=== PATIENT | female | born 1960 | race Caucasian/White ===

== ENCOUNTER → 2018-07-15 | Emergency (ER) | payer SELFPAY ==
[~2018-07-15] VITALS: Ht 157.5 cm; Wt 49.9 kg
[~2018-07-15] MED LIST: ACET-2267 PO; ACHD5005 PO; ALBU8.5H4 IH; ALPR0.5T PO; ASPI325T32 PO; B/P MEDICATION; CALCIUM; CATHETER FLUSH 10 ML SYR IV PRN; CEPH500C PO; CODE118S2 PO; ESTR-2 PO; GUAI-150 PO; IOHEXOL 350 MG/ML 100 ML (OMNIPAQUE 350) VIAL IV ONE; LIDOCAINE 1% INJ 20 ML 20 ML VIAL INJ ONE; MIDAZOLAM 2 MG/2 ML (VERSED) VIAL IVP ONE; MULT1TAB63; NF-ESTR1.5 PO; NS 250 ML (IVPB) BAG IV ONE; NS IV 1000 ML 1,000 ML IV STA; NS IV 1000 ML 1,000 ML ONE; NS IV 500 ML 500 ML IV ONE; ONDA4TAB11 PO; ONDANSETRON 4 MG/2 ML (SDV) Z0FRAN ONE; PARO10TA3 PO; PRX10T PO; RNT150T PO; fentaNYL INJECTION 100 MCG/2 ML AMP IVP ONE; fentaNYL INJECTION 100 MCG/2 ML AMP ONE
[2018-07-15 10:04] LABS: BASOPHILS % (AUTO) 0 % (0-10); EOSINOPHILS # (AUTO) 0.1 10^3/uL (0.0-0.3); EOSINOPHILS % (AUTO) 0 % (0-10); HEMATOCRIT 42 % (35-52); HEMOGLOBIN 14.1 G/DL (11.5-16.0); LYMPHOCYTES # (AUTO) 1.3 X 10^3 (1.0-4.0); LYMPHOCYTES % (AUTO) 10 % (12-44); MEAN CORPUSCULAR HEMOGLOBIN 31 PG (25-34); MEAN CORPUSCULAR HGB CONC 33 G/DL (32-36); MEAN CORPUSCULAR VOLUME 93 FL (80-99); MONOCYTES % (AUTO) 8 % (0-12); NEUTROPHILS % (AUTO) 82 % (42-75); PLATELET COUNT 584 10^3/uL (130-400); RED BLOOD COUNT 4.54 10^6/uL (4.35-5.85); RED CELL DISTRIBUTION WIDTH 12.6 % (10.0-14.5); WHITE BLOOD COUNT 13.4 10^3/uL (4.3-11.0)
[2018-07-15 10:25] LABS: ALANINE AMINOTRANSFERASE 17 U/L (0-55); ALBUMIN 4.2 GM/DL (3.2-4.5); ALKALINE PHOSPHATASE 122 U/L (40-136); BILIRUBIN,TOTAL 0.4 MG/DL (0.1-1.0); BUN/CREATININE RATIO 12; CALCIUM 10.2 MG/DL (8.5-10.1); CARBON DIOXIDE 24 MMOL/L (21-32); CHLORIDE 96 MMOL/L (98-107); CREATININE SERUM 0.74 MG/DL (0.60-1.30); GFR ESTIMATED > 60; GLUCOSE 90 MG/DL (70-105); POTASSIUM 4.7 MMOL/L (3.6-5.0); SODIUM 132 MMOL/L (135-145); TOTAL PROTEIN 8.2 GM/DL (6.4-8.2)
--- NOTE | 2018-07-15 10:29 | ED Abdominal Pain ---
General Chief Complaint: Abdominal/GI Problems Stated Complaint: CHEST PAIN Nursing Triage Note: PT CO OF ABD PAIN R UPPER ABD, PT VERY ANXIOUS AT THIS X. STATES HAS BEEN HAVING VOMITING W PAIN FOR 3-4 WEEKS WHEN EATS. PT SENT FROM [facility] Sepsis Screen: No Definite Risk Source of Information: Patient Exam Limitations: No Limitations (TRUMAN WALKER MD) History of Present Illness Timing/Duration: Other Severity/Quality: Moderate Location: RUQ, Generalized Abdomen (TRUMAN WALKER MD) Date Seen by Provider: Jul 15, 2018 Time Seen by Provider: 10:40 Initial Comments Here with right sided abdominal pain that is under the ribs anterior and posterior as well as pain that goes up to her shoulder blade on the right. Has some right upper quadrant abdominal pain. Patient does have long-term smoking history and smokes approximately a pack and a half a day for a long time but is down to less than half a pack a day now. Denies nausea and vomiting. Does report chills. Overall doesn't feel well. Timing/Duration: 1 Week, Other Modifying Factors: Worsens With Lying down, Worsens With Movement Associated Symptoms: Back Pain, Chest Pain, Fever/Chills; No Nausea/Vomiting; Shortness of Air (SHUKRI KIRK MD) Allergies and Home Medications Allergies Coded Allergies: NSAIDS (Non-Steroidal Anti-Inflamma (Verified Allergy, Unknown, 01/09/08) Home Medications Acetaminophen 500 Mg Tablet, 500-1,000 MG PO Q6H PRN for PAIN, (Reported) Alprazolam 0.5 Mg Tablet, 0.5 MG PO Q8H PRN for ANXIETY Prescribed by: SHUKRI KIRK on 07/15/18 1444 Aspirin 325 Mg Tablet.dr, 325 MG PO DAILY Prescribed by: FAY RODRÍGUEZ on 10/09/16 1609 Estropipate 1.5 Mg Tab, 1.5 MG PO DAILY, (Reported) Hydrocodone Bit/Acetaminophen 1 Tab Tab, 1 EACH PO Q4H PRN for PAIN-MODERATE Prescribed by: SHUKRI KIRK on 07/15/18 1442 Ondansetron 4 Mg Tab.rapdis, 4 MG PO Q6H PRN for NAUSEA/VOMITING Prescribed by: SHUKRI KIRK on 07/15/18 1442 Patient Home Medication List Home Medication List Reviewed: Yes (SHUKRI KIRK MD) Review of Systems Review of Systems Constitutional: see HPI EENTM: No Symptoms Reported Respiratory: Cough Cardiovascular: No Symptoms Reported Gastrointestinal: See HPI Genitourinary: No Symptoms Reported Musculoskeletal: no symptoms reported Skin: no symptoms reported Psychiatric/Neurological: No Symptoms Reported Endocrine: No Symptoms Reported Hematologic/Lymphatic: No Symptoms Reported (TRUMAN WALKER MD) Respiratory: Cough, Shortness of Air Cardiovascular: See HPI; Denies Edema, Denies Palpitations Musculoskeletal: back pain, muscle pain (SHUKRI KIRK MD) All Other Systems Reviewed Negative Unless Noted: Yes (SHUKRI KIRK MD) Past Bwkhrqh-Zravsg-Vqlsuu Hx Past Med/Social Hx: Reviewed Nursing Past Med/Soc Hx (SHUKRI KIRK MD) Patient Social History Alcohol Use: Denies Use Number of Drinks Today: FF Alcohol Beverage of Choice: Vodka Recreational Drug Use: No Smoking Status: Current Everyday Smoker Type Used: Cigarettes Recent Foreign Travel: No Contact w/Someone Who Travel: No Recent Infectious Disease Expo: No Recent Hopitalizations: Yes ( HYSTERECTOMY 2000, OVARY REMOVED AT AGE 11, APPENDECTOMY, TONSELECTOMY) Physical Abuse: No Sexual Abuse: No (TRUMAN WALKER MD) Seasonal Allergies Seasonal Allergies: Yes (TRUMAN WALKER MD) Past Medical History Surgeries: Yes (HYSTERECTOMY, APPENDECTOMY, TONSELECTOMY) Respiratory: Yes (BRONCHITIS) Currently Using CPAP: No Cardiac: No Neurological: No Gastrointestinal: Yes (ULCER AT ONE TIME) Hiatal Hernia Musculoskeletal: No Endocrine: No Cancer: No Psychosocial: No Integumentary: No Blood Disorders: No (TRUMAN WALKER MD) Surgeries: Yes (right oophorectomy with salpingectomy) Appendectomy Respiratory: Yes Chronic Bronchitis (SHUKRI KIRK MD) Family Medical History Reviewed Nursing Family Hx (SHUKRI KIRK MD) No Pertinent Family Hx (SHUKRI KIRK MD) Physical Exam Vital Signs Vital Signs - First Documented 07/15/18 09:40 Temp 97.3 Pulse 122 Resp 29 B/P (MAP) 161/97 (118) Pulse Ox 94 O2 Delivery Room Air (SHUKRI KIRK MD) Vital Signs Capillary Refill : Less Than 3 Seconds (TRUMAN WALKER MD) Height/Weight/BMI Height: 5'2.00" Weight: 110lbs. 6.0oz. 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 (TRUMAN WALKER MD) General Appearance: WD/WN, moderate distress HEENT: PERRL/EOMI, normal ENT inspection Neck: full range of motion, supple Respiratory: normal breath sounds Cardiovascular: no murmur Gastrointestinal: soft; No no pulsatile mass Back: no CVA tenderness, no vertebral tenderness (SHUKRI KIRK MD) Progress/Results/Core Measures Results/Orders Lab Results Laboratory Tests Test 07/15/18 09:50 Range/Units White Blood Count 13.4 H 4.3-11.0 10^3/uL Red Blood Count 4.54 4.35-5.85 10^6/uL Hemoglobin 14.1 11.5-16.0 G/DL Hematocrit 42 35-52 % Mean Corpuscular Volume 93 80-99 FL Mean Corpuscular Hemoglobin 31 25-34 PG Mean Corpuscular Hemoglobin Concent 33 32-36 G/DL Red Cell Distribution Width 12.6 10.0-14.5 % Platelet Count 584 H 130-400 10^3/uL Mean Platelet Volume 9.0 7.4-10.4 FL Neutrophils (%) (Auto) 82 H 42-75 % Lymphocytes (%) (Auto) 10 L 12-44 % Monocytes (%) (Auto) 8 0-12 % Eosinophils (%) (Auto) 0 0-10 % Basophils (%) (Auto) 0 0-10 % Neutrophils # (Auto) 11.0 H 1.8-7.8 X 10^3 Lymphocytes # (Auto) 1.3 1.0-4.0 X 10^3 Monocytes # (Auto) 1.0 0.0-1.0 X 10^3 Eosinophils # (Auto) 0.1 0.0-0.3 10^3/uL Basophils # (Auto) 0.0 0.0-0.1 10^3/uL Sodium Level 132 L 135-145 MMOL/L Potassium Level 4.7 3.6-5.0 MMOL/L Chloride Level 96 L 98-107 MMOL/L Carbon Dioxide Level 24 21-32 MMOL/L Anion Gap 12 5-14 MMOL/L Blood Urea Nitrogen 9 7-18 MG/DL Creatinine 0.74 0.60-1.30 MG/DL Estimat Glomerular Filtration Rate > 60 BUN/Creatinine Ratio 12 Glucose Level 90 70-105 MG/DL Calcium Level 10.2 H 8.5-10.1 MG/DL Corrected Calcium 10.0 8.5-10.1 MG/DL Total Bilirubin 0.4 0.1-1.0 MG/DL Aspartate Amino Transf (AST/SGOT) 18 5-34 U/L Alanine Aminotransferase (ALT/SGPT) 17 0-55 U/L Alkaline Phosphatase 122 40-136 U/L Troponin I < 0.30 <0.30 NG/ML Total Protein 8.2 6.4-8.2 GM/DL Albumin 4.2 3.2-4.5 GM/DL (SHUKRI KIRK MD) My Orders Orders - SHUKRI KIRK MD Iohexol Injection (Omnipaque 350 Mg/Ml 1 (07/15/18 11:30) Ns (Ivpb) (Sodium Chloride 0.9%) (07/15/18 11:30) Pharmacy Communication (Pharmacy Communi (07/15/18 11:18) Ct Chest/Abdomen/Pelvis W (07/15/18 11:23) Fentanyl Injection (Sublimaze Injection (07/15/18 11:26) Ns Iv 1000 Ml (Sodium Chloride 0.9%) (07/15/18 11:27) Ct Head W Wo (07/15/18 13:38) Iohexol Injection (Omnipaque 350 Mg/Ml 1 (07/15/18 13:45) Sodium Chloride Flush (Catheter Flush Sy (07/15/18 13:45) Ns (Ivpb) (Sodium Chloride 0.9%) (07/15/18 13:45) Pharmacy Communication (Pharmacy Communi (07/15/18 13:43) Saline Lock/Iv-Start (07/15/18 14:19) Ns Iv 500 Ml (Sodium Chloride 0.9%) (07/15/18 14:19) (SHUKRI KIRK MD) Medications Given in ED Current Medications Medications Dose Ordered Sig/Yovana Route Start Time Stop Time Status Last Admin Dose Admin Fentanyl Citrate 100 mcg STK-MED ONCE .ROUTE 07/15/18 11:26 07/15/18 11:31 DC 07/15/18 11:52 100 MCG Iohexol 100 ml ONCE ONCE IV 07/15/18 11:30 07/15/18 11:31 DC 07/15/18 11:34 100 ML Iohexol 100 ml ONCE ONCE IV 07/15/18 13:45 07/15/18 13:46 DC 07/15/18 13:59 80 ML Ondansetron HCl 4 mg STK-MED ONCE .ROUTE 07/15/18 10:10 07/15/18 10:16 DC 07/15/18 10:20 4 MG Sodium Chloride 10 ml NEEDED PRN IV 07/15/18 13:45 07/15/18 13:59 10 ML Sodium Chloride 250 ml ONCE ONCE IV 07/15/18 11:30 07/15/18 11:31 DC 07/15/18 11:34 80 ML Sodium Chloride 250 ml ONCE ONCE IV 07/15/18 13:45 07/15/18 13:46 DC 07/15/18 13:59 80 ML Sodium Chloride 500 ml @ 0 mls/hr Q0M ONCE IV 07/15/18 14:19 07/15/18 14:20 DC 07/15/18 14:24 500 MLS/HR Sodium Chloride 1,000 ml @ ud STK-MED ONCE .ROUTE 07/15/18 11:27 07/15/18 11:32 DC 07/15/18 11:53 1,000 MLS/HR (SHUKRI KIRK MD) Vital Signs/I&O 07/15/18 09:40 Temp 97.3 Pulse 122 Resp 29 B/P (MAP) 161/97 (118) Pulse Ox 94 O2 Delivery Room Air (SHUKRI KIRK MD) Blood Pressure Mean: 118 Progress Progress Note : Progress Note Seen and evaluated the patient and agree with above except as indicated. I have assumed care from Dr. WALKER pending ultrasound. 1130: Ultrasound preliminary results concerning for mass and she has mass noted on the chest x- ray. We will order CT chest, abdomen and pelvis. I did discuss this with the radiologist. Initially ordered as abdomen and pelvis but x-ray findings concerning so chest was added. Fentanyl 50 g IV and normal saline 1 L bolus ordered. Monitor patient. 1250: CT findings concerning for metastatic cancer with mass and bilateral adrenal glands and to the right lung. This is discussed with the patient and her daughter. Patient is concerned about pain in treatment. We did discuss that we would prescribe pain medication. I will consult oncology to discuss follow-up. Patient and family were also interested in talking with palliative care. I did discuss this with palliative care nurse who will see the patient in the emergency department. 1420: We have done CT of the head with and without contrast per request from Dr. Zaragoza. This is negative. We have evaluated for possibility of biopsy of the lung today. Unfortunately, we will have to wait till Wednesday morning but she is scheduled for Wednesday morning at 1015. Additional order of normal saline 500 mL bolus has been placed for coverage a second bolus of contrast. Family and patient have been informed of all findings or concerns as well as plan. Social work has seen the patient with respect to financial assistance and insurance packet and she and the family will work on that. Patient follow-up at cancer Center late next week after biopsies are complete. 1510: Discharge home with return precautions. Patient verbalize understanding instructions and agreement with plan. (SHUKRI KIRK MD) Diagnostic Imaging Diagonstic Imaging: Xray Plain Films/CT/US/NM/MRI: chest [facility] [place], [place] NAME: KRYSTIAN CAMPOS [facility] REC#: [id number] PT STATUS: REG ER : 1960 PHYSICIAN: TRUMAN WALKER MD ADMIT DATE: 07/15/18/ER Draft Date of Exam:07/15/18 CHEST 1 VIEW, AP/PA ONLY INDICATION: Chest pain. Frontal chest obtained at 10:15 a.m. is compared with 10/08/2016. FINDINGS: There are areas of mass effect in the right upper chest both medially and laterally, which were not present on the prior study of 10/08/2016. Heart is normal in size. The left lung shows no focal infiltrate. There is apical bullous disease in the left side. There is no pleural fluid. IMPRESSION: Masslike densities are visualized in the right apex, recommend chest CT for further evaluation to rule out malignancy. Underlying COPD change. Dictated on workstation # [id number] Dict: 07/15/18 1035 Trans: 07/15/18 1039 [id number] Interpreted by: AMY LEWIS MD Electronically signed by: Reviewed: Reviewed by Oh Diagonstic Imaging: Ultrasound Plain Films/CT/US/NM/MRI: abdomen Comments VIA [place], [place] NAME: KRYSTIAN CAMPOS [facility] REC#: [id number] PT STATUS: REG ER : 1960 PHYSICIAN: TRUMAN WALKER MD ADMIT DATE: 07/15/18/ER Draft Date of Exam:07/15/18 US GALLBLADDER [id number] INDICATION: Abdominal pain Gallbladder sonography performed in the routine fashion. The liver shows normal echogenicity with no focal lesions. Gallbladder is unremarkable with no stones or wall thickening. Common duct measured 2.9 cm. Pancreas is partially obscured by overlying gas. Portal vein is patent. There is a masslike area in the right upper quadrant which is of unclear origin and may represent a mass arising from the kidney exophytically or from the adrenal. Recommend CT of the abdomen and pelvis pre and post IV contrast for better evaluation. IMPRESSION: Unremarkable appearing gallbladder and biliary tree. There is a heterogeneous lesion in the right upper quadrant which may be arising from the right kidney or adrenal, recommend CT of the abdomen and pelvis for further evaluation pre-and post IV contrast. Dictated on workstation # [id number] Dict: 07/15/18 1128 Trans: 07/15/18 1136 [facility] [id number] Interpreted by: AMY LEWIS MD Electronically signed by: Reviewed: Reviewed by Oh Diagonstic Imaging: CT Plain Films/CT/US/NM/MRI: chest, abdomen, pelvis Comments VIA [place], [place] NAME: KRYSTIAN CAMPOS [facility] REC#: [id number] PT STATUS: REG ER : 1960 PHYSICIAN: SHUKRI KIRK MD ADMIT DATE: 07/15/18/ER Draft Date of Exam:07/15/18 CT CHEST/ABDOMEN/PELVIS W PROCEDURE: CT chest, abdomen, and pelvis with contrast. TECHNIQUE: Multiple contiguous axial images were obtained through the chest, abdomen, and pelvis after the administration of intravenous contrast. INDICATION: Right-sided abdominal and chest pain. Cough. Right shoulder pain. Vomiting. COMPARISON: CTA chest 09/18/2016. CT abdomen and pelvis without contrast 12/28/2007. FINDINGS: CHEST: Advanced emphysematous changes in the lungs. There are two new large masses in the right lung apex measuring approximately 7 x 7 x 9 cm and 3 x 5 x 5 cm. There is a large pretracheal lymphadenopathy measuring up to 2.5 cm with a central low attenuation. A low-attenuation enlarged right hilar lymph node measures up to 1.9 cm in short axis dimension. Normal heart size. No pericardial effusion. Normal caliber thoracic aorta and main pulmonary arteries. No large or central pulmonary artery filling defects on this nondedicated exam. No pleural effusion or pneumothorax. Osseous structures are intact. No suspicious osteoblastic or lytic lesions. Specifically, there are no erosions in the ribs abutted by the right apical masses. ABDOMEN AND PELVIS: Bilateral adrenal gland masses measuring up to 9 cm on the right and 4 cm on the left. The liver, gallbladder, pancreas, spleen, kidneys, collecting systems and bladder are negative. Appendectomy. No free intraperitoneal air or fluid. No evidence of bowel obstruction or inflammation. Moderate atherosclerotic calcifications including a normal caliber abdominal aorta. Moderate spondylotic changes are greatest at L5-S1. No acute osseous findings. No suspicious osteoblastic or lytic lesions. IMPRESSION: 1. Large masses in the right lung apex with right hilar and mediastinal lymphadenopathy strongly suspicious for metastatic malignancy. 2. Large bilateral adrenal gland masses consistent with metastases. Dictated on workstation # [id number] Dict: 07/15/18 1205 Trans: 07/15/18 1230 [id number] Interpreted by: MARY BETH MERLOS MD Electronically signed by: Reviewed: Reviewed by Me Diagonstic Imaging: CT Plain Films/CT/US/NM/MRI: head Comments [facility]. [place], [place] NAME: KRYSTIAN CAMPOS [facility] REC#: [id number] PT STATUS: REG ER : 1960 PHYSICIAN: SHUKRI KIRK MD ADMIT DATE: 07/15/18/ER Draft Date of Exam:07/15/18 CT HEAD W WO PROCEDURE: CT head with and without contrast. TECHNIQUE: Multiple contiguous axial images were obtained through the brain before and after the administration of intravenous contrast. INDICATION: Lung cancer. COMPARISON: None. FINDINGS: Moderate generalized cerebral and cerebellar parenchymal volume loss. No CT evidence of a territorial infarction. No vasogenic edema or intracranial enhancement suspicious for intracranial metastasis. No intracranial hemorrhage, mass effect, hydrocephalus or extra-axial fluid collections. Osseous structures are intact. The visualized paranasal sinuses and mastoids are clear. IMPRESSION: No acute intracranial CT findings. No abnormal intracranial enhancement or edema suggesting metastases. Dictated on workstation # [id number] Dict: 07/15/18 1405 Trans: 07/15/18 1408 [facility] [id number] Interpreted by: MARY BETH MERLOS MD Electronically signed by: Reviewed: Reviewed by Me (SHUKRI KIRK MD) Departure Impression Primary Impression: Lung mass Additional Impressions: Mass of both adrenal glands Right flank pain Disposition: 01 HOME, SELF-CARE Condition: Stable Departure-Patient Inst. Decision time for Depature: 14:35 (SHUKRI KIRK MD) Referrals: RACHELLE VELASQUEZ MD (PCP/Family) Primary Care Physician Patient Instructions: Adrenal Cancer, Cancer Pain Syndromes (DC), Lung Cancer ( DC) Add. Discharge Instructions: All discharge instructions reviewed with patient and/or family. Voiced understanding. Take medications as directed. You need to report to outpatient surgery at 830 on 07/18/18. Do not eat or drink anything after midnight on 17 July. Your biopsy is scheduled for 1015 a.m. It is important that you continue to drink fluids and eat what you can otherwise. Return for worse pain, fever, vomiting, weakness, breathing problems or other concerns as needed. Scripts Alprazolam (Xanax) 0.5 Mg Tablet 0.5 MG PO Q8H PRN for ANXIETY, #14 TAB 0 Refills Prov: SHUKRI KIRK MD 07/15/18 Ondansetron (Ondansetron Odt) 4 Mg Tab.rapdis 4 MG PO Q6H PRN for NAUSEA/VOMITING, #8 TAB 0 Refills Prov: SHUKRI KIRK MD 07/15/18 Hydrocodone Bit/Acetaminophen (Hydrocodone/Acetaminophen 5/325mg Tablet) 1 Tab Tab 1 EACH PO Q4H PRN for PAIN-MODERATE MDD 10, #42 TAB Prov: SHUKRI KIRK MD 07/15/18 Copy Copies To 1: KINDRA FALK Copies To 2: RACHELLE VELASQUEZ MD, RODNEY K MD Jul 15, 2018 10:29 SHUKRI KIRK MD Jul 15, 2018 11:29
--- NOTE | 2018-07-15 10:39 | Diagnostic Imaging Report ---
INDICATION: Chest pain. Frontal chest obtained at 10:15 a.m. is compared with 10/08/2016. FINDINGS: There are areas of mass effect in the right upper chest both medially and laterally, which were not present on the prior study of 10/08/2016. Heart is normal in size. The left lung shows no focal infiltrate. There is apical bullous disease in the left side. There is no pleural fluid. IMPRESSION: Masslike densities are visualized in the right apex, recommend chest CT for further evaluation to rule out malignancy. Underlying COPD change. Dictated by: Dictated on workstation # [id number]
--- NOTE | 2018-07-15 11:36 | Diagnostic Imaging Report ---
INDICATION: Abdominal pain Gallbladder sonography performed in the routine fashion. The liver shows normal echogenicity with no focal lesions. Gallbladder is unremarkable with no stones or wall thickening. Common duct measured 2.9 cm. Pancreas is partially obscured by overlying gas. Portal vein is patent. There is a masslike area in the right upper quadrant which is of unclear origin and may represent a mass arising from the kidney exophytically or from the adrenal. Recommend CT of the abdomen and pelvis pre and post IV contrast for better evaluation. IMPRESSION: Unremarkable appearing gallbladder and biliary tree. There is a heterogeneous lesion in the right upper quadrant which may be arising from the right kidney or adrenal, recommend CT of the abdomen and pelvis for further evaluation pre-and post IV contrast. Dictated by: Dictated on workstation # [id number]
--- NOTE | 2018-07-15 12:30 | Diagnostic Imaging Report ---
PROCEDURE: CT chest, abdomen, and pelvis with contrast. TECHNIQUE: Multiple contiguous axial images were obtained through the chest, abdomen, and pelvis after the administration of intravenous contrast. INDICATION: Right-sided abdominal and chest pain. Cough. Right shoulder pain. Vomiting. COMPARISON: CTA chest 09/18/2016. CT abdomen and pelvis without contrast 12/28/2007. FINDINGS: CHEST: Advanced emphysematous changes in the lungs. There are two new large masses in the right lung apex measuring approximately 7 x 7 x 9 cm and 3 x 5 x 5 cm. There is a large pretracheal lymphadenopathy measuring up to 2.5 cm with a central low attenuation. A low-attenuation enlarged right hilar lymph node measures up to 1.9 cm in short axis dimension. Normal heart size. No pericardial effusion. Normal caliber thoracic aorta and main pulmonary arteries. No large or central pulmonary artery filling defects on this nondedicated exam. No pleural effusion or pneumothorax. Osseous structures are intact. No suspicious osteoblastic or lytic lesions. Specifically, there are no erosions in the ribs abutted by the right apical masses. ABDOMEN AND PELVIS: Bilateral adrenal gland masses measuring up to 9 cm on the right and 4 cm on the left. The liver, gallbladder, pancreas, spleen, kidneys, collecting systems and bladder are negative. Appendectomy. No free intraperitoneal air or fluid. No evidence of bowel obstruction or inflammation. Moderate atherosclerotic calcifications including a normal caliber abdominal aorta. Moderate spondylotic changes are greatest at L5-S1. No acute osseous findings. No suspicious osteoblastic or lytic lesions. IMPRESSION: 1. Large masses in the right lung apex with right hilar and mediastinal lymphadenopathy strongly suspicious for metastatic malignancy. 2. Large bilateral adrenal gland masses consistent with metastases. Dictated by: Dictated on workstation # [id number]
--- NOTE | 2018-07-15 14:08 | Diagnostic Imaging Report ---
PROCEDURE: CT head with and without contrast. TECHNIQUE: Multiple contiguous axial images were obtained through the brain before and after the administration of intravenous contrast. INDICATION: Lung cancer. COMPARISON: None. FINDINGS: Moderate generalized cerebral and cerebellar parenchymal volume loss. No CT evidence of a territorial infarction. No vasogenic edema or intracranial enhancement suspicious for intracranial metastasis. No intracranial hemorrhage, mass effect, hydrocephalus or extra-axial fluid collections. Osseous structures are intact. The visualized paranasal sinuses and mastoids are clear. IMPRESSION: No acute intracranial CT findings. No abnormal intracranial enhancement or edema suggesting metastases. Dictated by: Dictated on workstation # [id number]
[2018-07-15 15:15] VITALS: BP 121/67
== END | disposition home or self-care (01) ==
LOC: EDUNIT# 09:39 → ER 09:40
DX: R91.8 Other nonspecific abnormal finding of lung field (principal); E27.9 Disorder of adrenal gland, unspecified; R10.11 Right upper quadrant pain; R07.9 Chest pain, unspecified; F17.210 Nicotine dependence, cigarettes, uncomplicated; Z88.6 Allergy status to analgesic agent; Z79.82 Long term (current) use of aspirin; Z90.710 Acquired absence of both cervix and uterus; Z90.89 Acquired absence of other organs; Z87.09 Personal history of other diseases of the respiratory system; Z87.19 Personal history of other diseases of the digestive system
CPT/HCPCS: 36415; 70470; 71045; 71260; 74177; 76705; 80053; 84484; 85025; 93005

== ENCOUNTER 2018-07-18 08:15 | Outpatient (CLI) | payer SELFPAY ==
[2018-07-18] VITALS (13 sets, daily range): BP systolic 87–120; BP diastolic 60–81
[~2018-07-18] VITALS: Ht 157.5 cm; Wt 50.1 kg
[~2018-07-18 08:15] MED LIST changes: -CATHETER FLUSH 10 ML SYR IV PRN; -IOHEXOL 350 MG/ML 100 ML (OMNIPAQUE 350) VIAL IV ONE; -LIDOCAINE 1% INJ 20 ML 20 ML VIAL INJ ONE; -MIDAZOLAM 2 MG/2 ML (VERSED) VIAL IVP ONE; -NS 250 ML (IVPB) BAG IV ONE; -NS IV 1000 ML 1,000 ML IV STA; -NS IV 1000 ML 1,000 ML ONE; -NS IV 500 ML 500 ML IV ONE; -ONDANSETRON 4 MG/2 ML (SDV) Z0FRAN ONE; -fentaNYL INJECTION 100 MCG/2 ML AMP IVP ONE; -fentaNYL INJECTION 100 MCG/2 ML AMP ONE
[2018-07-18] MEDS ORDERED: NS IV 1000 ML 1,000 ML IV STA (08:28)
[2018-07-18] MEDS ORDERED: fentaNYL INJECTION 100 MCG/2 ML AMP IVP ONE (08:30)
[2018-07-18] MEDS ORDERED: MIDAZOLAM 2 MG/2 ML (VERSED) VIAL IVP ONE (08:30)
[2018-07-18] MEDS ORDERED: LIDOCAINE 1% INJ 20 ML 20 ML VIAL INJ ONE (08:30)
[2018-07-18 09:11] LABS: HEMOGLOBIN 13.3 G/DL (11.5-16.0); RED BLOOD COUNT 4.22 10^6/uL (4.35-5.85); RED CELL DISTRIBUTION WIDTH 12.2 % (10.0-14.5); WHITE BLOOD COUNT 10.3 10^3/uL (4.3-11.0)
[2018-07-18 09:26] LABS: INR 1.1 (0.8-1.4)
[2018-07-18] MEDS ORDERED: HYDROcodone/APAP 5 MG/325 MG (LORTAB) TAB PO PRN (10:30)
--- NOTE | 2018-07-18 13:05 | Diagnostic Imaging Report ---
INDICATION: Lung and adrenal mass. TECHNIQUE AND FINDINGS: After explaining the risks, benefits, and alternatives of the procedure to the patient, written consent was obtained. The patient was placed on the table in the prone position. Conscious sedation was performed with 1 mg of Versed and 25 mcg of fentanyl. This was done under constant nursing supervision. A preliminary CT scan was obtained for localization purposes. The patient's right back was prepped and draped utilizing maximal sterile barrier technique. Local anesthesia was obtained with 2% lidocaine. A needle was advanced into the right adrenal mass under CT guidance. Five core biopsy specimens were obtained. The needle was removed and hemostasis was obtained. The patient tolerated the procedure well and left the Department in stable condition. IMPRESSION: Successful CT-guided adrenal biopsy as described. Dictated by: Dictated on workstation # [id number]
[2018-07-21] MEDS ORDERED: FAMO-119 PO (15:47)
[2018-07-21] MEDS ORDERED: ESTR1TAB24 PO (15:47)
[2018-07-21] MEDS ORDERED: LISI10TA2 PO (15:47)
[2018-07-21] MEDS ORDERED: ASPI-586 PO (15:47)
[2018-07-21] MEDS ORDERED: PARO10TA3 PO (15:47)
== END 2018-07-18 14:30 | disposition home or self-care (01) ==
LOC: SDC 08:15
PROVIDERS: ATTEND Internal Medicine Hematology & Oncology
DX: C74.91 Malignant neoplasm of unspecified part of right adrenal gland (principal); R91.8 Other nonspecific abnormal finding of lung field
CPT/HCPCS: 36415; 77012; 85027; 85610; 85730; 88305; 88313; 88341; 88342; 88344; 99156

== ENCOUNTER → 2018-07-21 | Outpatient (CLI) | payer SELFPAY ==
[~2018-07-21] VITALS: Ht 157.5 cm; Wt 50.1 kg
[~2018-07-21] MED LIST changes: +ASPI-586 PO; +ESTR1TAB24 PO; +FAMO-119 PO; +LISI10TA2 PO
== END | disposition home or self-care (01) ==
LOC: PREOP 14:06
PROVIDERS: ATTEND Surgery
DX: Z01.818 Encounter for other preprocedural examination (principal)

== ENCOUNTER 2018-07-25 06:56 | Day surgery (SDC) | payer SELFPAY ==
[~2018-07-25] VITALS: Ht 157.5 cm; Wt 50.1 kg
[2018-07-25 07:03] VITALS: BP 103/70
[2018-07-25] MEDS ORDERED: LACTATED RINGERS 1,000 ML IV PRN (07:05)
[2018-07-25] MEDS ORDERED: ceFAZolin 2 GM IV Premixed 50 ML IV ONE (07:15)
[2018-07-25] MEDS ORDERED: FAMOTIDINE 20MG/2ML IV (PEPCID) IV ONE (07:45)
[2018-07-25] MEDS ORDERED: fentaNYL INJECTION 100 MCG/2 ML AMP IVP ONE ×2 (07:45→10:00)
[2018-07-25] MEDS ORDERED: ONDANSETRON 4 MG/2 ML (SDV) Z0FRAN IV ONE (07:45)
[2018-07-25] MEDS ORDERED: LIDOCAINE/EPI 1%-1:200,000 (XYLOCAINE) 10 ML VIAL ONE (08:38)
[2018-07-25] MEDS ORDERED: HEParin (CENTRAL IV FLUSH) 500 UNIT/5 ML SYR ONE (08:38)
[2018-07-25] MEDS ORDERED: 0.9% SODIUM CHLORIDE PF INJ 20 ML VIAL ONE (08:38)
[2018-07-25] MEDS ORDERED: fentaNYL INJECTION 100 MCG/2 ML AMP ONE (08:52)
[2018-07-25] MEDS ORDERED: MIDAZOLAM 2 MG/2 ML (VERSED) VIAL ONE (08:52)
[2018-07-25] MEDS ORDERED: proPOfol 200 MG/20 ML (DIPRIVAN) VIAL IV ONE (08:52)
[2018-07-25] MEDS ORDERED: LIDOCAINE PF 2% 5 ML (XYLOCAINE) VIAL ONE (08:52)
--- NOTE | 2018-07-25 09:04 | Progress Note-Pre Operative ---
Pre-Operative Progress Note H&P Reviewed The H&P was reviewed, patient examined and no changes noted. Time Seen by Provider: 08:59 Date H&P Reviewed: Jul 25, 2018 Time H&P Reviewed: 09:00 Pre-Operative Diagnosis: , Lung CA SYED QUINTERO DO Jul 25, 2018 09:04
--- NOTE | 2018-07-25 09:42 | Progress Note-Post Operative ---
Post-Operative Progess Note Surgeon (s)/[employer] (s) Surgeon SYED QUINTERO DO [employer]: SUSANNE RushII Pre-Operative Diagnosis , Lung CA Post-Operative Diagnosis Same Procedure & Operative Findings Date of Procedure 07/25/18 Procedure Performed/Findings Humza-Cath insertion L ACW, L SC vein Anesthesia Type IV sedation by CLAIM PROFESSIONAL Estimated Blood Loss Estimated blood loss (mL): scant Specimens/Packing Specimens Removed none SYED QUINTERO DO Jul 25, 2018 09:42
--- NOTE | 2018-07-25 09:45 | Discharge Inst-Surgical ---
Discharge Inst-Surgical Depart Medication/Instructions New, Converted or Re-Newed RX: Other (No Rx needed, pt already has pain meds at home) Patient Instructions Follow up Appt: Make appointment for 1 week. Instructions: No strenuous activity. May shower in 24 hours, no tub bath or soaking. Use incentive spirometer at home as directed. No Smoking Skin/Wound Care: May remove bandages in am. You need to leave the Dermabond on over incisionit will fall off on its own. Symptoms to Report: Appetite Changes, Extremity Discoloration, Numbness/Tingling, Swelling Increased , Bleeding Excessive, Eyesight Changes, Pain Increased, Urine Color Change, Constipation(Persistent), Fever over 101 degree F, Pain/Pressure in chest, Urinating Difficulty, Cough Up/Vomit Blood, Heart Beat Irreg/Pounding, Pain/ Pressure in jaw, Vaginal Bleeding Increase, Cramps in feet or legs, Lightheadedness, Pain/Pressure in shoulder, Diarrhea(Persistent), Memory Changes Suddenly, Questions/Concerns, Weight gain consecutive days, Dizziness/ Fainting, Nausea/Vomiting, Shortness of Breath, Weight gain over 2 pounds If questions or concerns contact your physician Or seek help at emergency department. Activity Activity as Tolerated: Yes Activity Instructions: Avoid Stress to Incision Driving Instructions: No Driving/Refer to Dr. Gonsalez Discharge Diet: No Restrictions Diet After 24 Hours: Clear Liquid if Nauseous If Any Problems/Questions/Issu: Contact Your Physician, Go to Emergency Room Skin/Wound Care Infection Signs and Symptoms: Increased Redness, Foul Odor of Wound, Increased Drainage, Skin Itchy or Has a Rash, Increased Swelling, Temperature Above 101 F Bathing Instructions: Shower Stitches/Meghan/Dermabond Dis: Dermabond Ice Pack: Ice On and Off Site (as needed for pain) SYED QUINTERO DO Jul 25, 2018 09:44
[2018-07-25] MEDS ORDERED: HYDROmorphone 2 MG/ML VIAL (DILAUDID) IV ONE (10:00)
[2018-07-25] MEDS ORDERED: ONDANSETRON 4 MG/2 ML (SDV) Z0FRAN IVP PRN (10:00)
[2018-07-25 10:23] VITALS: BP 98/65
[2018-07-25 10:53] VITALS: BP 108/66
[2018-07-25 11:25] VITALS: BP 108/66
--- NOTE | 2018-07-25 12:22 | Diagnostic Imaging Report ---
INDICATION: Fluoroscopy for PowerPort placement. FINDINGS: Fluoroscopy was provided for Dr. Hugo during PowerPort insertion. 5 seconds of fluoroscopy was utilized. Images demonstrate a left chest wall port with the tip overlying the SVC. IMPRESSION: Fluoroscopy for port placement. Dictated by: Dictated on workstation # [id number]
--- NOTE | 2018-07-25 13:23 | Anesthesia-General Post-Op ---
MAC Patient Condition Mental Status/LOC: Same as Preop Cardiovascular: Satisfactory Nausea/Vomiting: Absent Respiratory: Satisfactory Pain: Controlled Complications: Absent Post Op Complications Complications None Follow Up Care/Instructions Patient Instructions None needed. Anesthesiology Discharge Order Discharge Order Patient is doing well, no complaints, stable vital signs, no apparent adverse anesthesia problems. No complications reported per nursing. DORENE HERRMANN CRNA Jul 25, 2018 13:23
--- NOTE | 2018-07-25 19:32 | OPERATIVE REPORT ---
DATE OF SERVICE: 07/25/2018 PREOPERATIVE DIAGNOSES: 1. Venous insufficiency. 2. Lung cancer. POSTOPERATIVE DIAGNOSES: 1. Venous insufficiency. 2. Lung cancer. PROCEDURE: Port-A-Cath insertion left anterior chest wall, left subclavian vein. SURGEON: Morro Hugo DO SCRAP BREAKER: Gilbert Catalan MS3 ANESTHESIA: IV sedation by the MEDICAL INSURANCE BILLER. SPECIMENS: None. BLOOD LOSS: Scant. FLUIDS: Per anesthesia. POSTOPERATIVE CONDITION: Stable. INDICATION FOR PROCEDURE: The patient is a 58-year-old female, who unfortunately has some lung cancer might be metastatic. She also has venous insufficiency and needs a port for long-term access for long-term chemotherapy. FINDINGS: The patient had Port-A-Cath placed in left anterior chest wall, left subclavian vein without any difficulty. PROCEDURE NOTE: After informed consent was obtained, the patient was brought to the operating room, placed on the operating room table in supine position. She was sterilely prepped and draped in normal fashion. Local lidocaine was used to infiltrate the left anterior chest wall towards the clavicle as well as on the left anterior chest wall for the placement of the pocket for the port. She was then placed slightly Trendelenburg. An 18-gauge finder needle was advanced with negative inspiration under the left clavicle to access the left subclavian vein , got a good flash of blood on the first attempt. Removed the syringe, placed a guidewire down the needle using Seldinger technique, it went in easily, checked with fluoroscopy, it was in good position, removed the needle. I then made a stab incision and then over the guidewire placed a dilator using Seldinger technique, checked with fluoroscopy, it was in good position. I made an incision in the left anterior chest wall with #11 blade as well as a stab incision at the guidewire. Had then created a pocket. Blunt dissection with Bovie electrocautery to control bleeding. Placed a 3-0 Prolene suture and then removed the inner portion of the dilator as well as the guidewire and then placed the catheter using Seldinger technique, checked with fluoroscopy, it was in good position, tunneled this under into the pocket. Removed the dilator and sheath and then checked with fluoroscopy, pulled the catheter back to slightly, so it was just into the vena cava. I then cut the catheter, attached to the port and then attached the locking mechanism then accessed the port, got a good flash of blood and then easily flushed with saline and then flushed again with 2 mL of heparin then placed the port into the pocket previously created and sutured down with a 3-0 Prolene, checked with fluoroscopy. There were no kinks. It looked a good curve and at this point then closed the incision closing the subcutaneous tissue with 3-0 Vicryl 2 interrupted sutures and closed the skin with 4-0 undyed Monocryl 3 interrupted subcuticular stitches. Area was cleaned and dried and Dermabond used to close this as well as a stab incision. Bandages placed. The patient then transferred to recovery room in stable condition. Sponge, instrument and needle count correct at the end of the case. Job ID: [id number] DocumentID: [id number] Dictated Date: 07/25/2018 09:50:43 Underwriting Sales Representative Date: 07/25/2018 19:31:54 Dictated By: DO MONCHO WARREN
== END 2018-07-25 11:25 | disposition home or self-care (01) ==
LOC: SDC 06:56
PROVIDERS: ATTEND Surgery
DX: I87.2 Venous insufficiency (chronic) (peripheral) (principal); C34.11 Malignant neoplasm of upper lobe, right bronchus or lung; C79.71 Secondary malignant neoplasm of right adrenal gland; I10 Essential (primary) hypertension; J40 Bronchitis, not specified as acute or chronic; F17.210 Nicotine dependence, cigarettes, uncomplicated; K21.9 Gastro-esophageal reflux disease without esophagitis; K44.9 Diaphragmatic hernia without obstruction or gangrene; Z79.82 Long term (current) use of aspirin; Z79.899 Other long term (current) drug therapy
CPT/HCPCS: 87081

== ENCOUNTER 2018-07-28 07:33 | Outpatient (CLI) | payer OTHER ==
[~2018-07-28] VITALS: Ht 157.5 cm; Wt 50.1 kg
[2018-07-28] VITALS (15 sets, daily range): BP systolic 89–143; BP diastolic 60–85
[2018-07-28] MEDS ORDERED: NS IV 1000 ML 1,000 ML IV STA (07:42)
[2018-07-28] MEDS ORDERED: MIDAZOLAM 2 MG/2 ML (VERSED) VIAL IVP ONE (07:45)
[2018-07-28] MEDS ORDERED: fentaNYL INJECTION 100 MCG/2 ML AMP IVP ONE (07:45)
[2018-07-28] MEDS ORDERED: LIDOCAINE 1% INJ 20 ML 20 ML VIAL INJ ONE (07:45)
[2018-07-28 08:08] LABS: MEAN PLATELET VOLUME 8.7 FL (7.4-10.4); RED BLOOD COUNT 4.23 10^6/uL (4.35-5.85); RED CELL DISTRIBUTION WIDTH 12.3 % (10.0-14.5); WHITE BLOOD COUNT 12.4 10^3/uL (4.3-11.0)
[2018-07-28 08:20] LABS: INR 1.1 (0.8-1.4)
--- NOTE | 2018-07-28 09:57 | Pre-Op Note & Conscious Sedat ---
Pre-Operative Progress Note H&P Reviewed The H&P was reviewed, patient examined and no changes noted. Date H&P Reviewed: Jul 28, 2018 Time H&P Reviewed: 08:00 Pre-Op Diagnosis: Adrenal mass Conscious Sedation Pre-Proced Time 08:00 ASA Score 2 For ASA 3 and 4: Consider anesthesia and medical clearance. Also, for patients with a history of failed moderate sedation consider anesthesia. Airway Lungs Heart ASA score ASA 1: a normal healthy patient ASA 2: a patient with a mild systemic disease (mid diabetes, controlled hypertension, obesity ASA 3: a patient with a severe systemic disease that limits activity (angina , COPD, prior Myocardial infarction) ASA 4: a patient with an incapacitating disease that is a constant threat to life (CHF, renal failure) ASA 5: a moribund patient not expected to survive 24 hrs. (ruptured aneurysm) ASA 6: a declared brain patient whose organs are being harvested. For emergent operations, add the letter E after the classification Mallampati Classification Grade 1 Sedation Plan Analgesia, Amnesia, Plan communicated to team members, Discussed options with patient/fam, Discussed risks with patient/fam The patient is an appropriate candidate to undergo the planned procedure, sedation, and anesthesia. The patient immediately re-assessed prior to indication. OMER DENG MD Jul 28, 2018 09:57
[2018-07-28] MEDS ORDERED: ONDANSETRON 4 MG/2 ML (SDV) Z0FRAN IV PRN (10:15)
[2018-07-28] MEDS ORDERED: HYDROcodone/APAP 5 MG/325 MG (LORTAB) TAB PO PRN (10:15)
--- NOTE | 2018-07-28 12:25 | Diagnostic Imaging Report ---
INDICATION: Lung mass and right adrenal mass. Patient presents for repeat biopsy. TECHNIQUE: Patient was brought to the CT room, placed on the table in the prone position. Axial imaging through the abdomen was performed to evaluate appropriate entry site. Study was performed using moderate conscious sedation with radiology nursing and constant monitoring. Patient was administered 50 mcg of fentanyl intravenously and 1 mg of Versed intravenously. A total of 11 minutes of procedure time is noted. FINDINGS: The right posterior abdomen was prepped and draped in usual sterile fashion. A small amount of 1% lidocaine was utilized for local anesthesia. An 18-gauge coaxial Temno needle was advanced into the right adrenal mass. Three core biopsies were obtained. Next, the needle was repositioned slightly more inferior along the margin of the mass and three additional core biopsies were obtained. Needle was withdrawn and hemostasis was obtained using manual compression. Patient tolerated the procedure well and left the department in stable condition. IMPRESSION: CT-guided core biopsy of the right adrenal mass, as described, utilizing conscious sedation. Pathology results are currently pending. Dictated by: Dictated on workstation # [id number]
[2018-07-31] MEDS ORDERED: FENT1PAT57 TD (12:52)
[2018-07-31] MEDS ORDERED: ONDA8TAB9 PO (13:33)
[2018-07-31] MEDS ORDERED: ALPR0.25 PO (13:33)
== END 2018-08-10 09:35 | disposition home or self-care (01) ==
LOC: SDC 07:33
PROVIDERS: ATTEND Internal Medicine Hematology & Oncology
DX: C74.91 Malignant neoplasm of unspecified part of right adrenal gland (principal); R91.8 Other nonspecific abnormal finding of lung field
CPT/HCPCS: 36415; 77012; 85027; 85610; 85730; 88305; 99156

== ENCOUNTER 2018-07-31 11:58 | Emergency (ER) | payer SELFPAY ==
[~2018-07-31] VITALS: Ht 157.5 cm; Wt 49.9 kg
[2018-07-31] MEDS ORDERED: fentaNYL INJECTION 100 MCG/2 ML AMP IVP STA (12:20)
[2018-07-31] MEDS ORDERED: NS IV 500 ML 500 ML IV ONE (12:20)
[2018-07-31 12:29] LABS: BILIRUBIN,URINE NEGATIVE (NEGATIVE); CLARITY,URINE SLIGHTLY CLOUDY; COLOR,URINE YELLOW; GLUCOSE, URINE (UA) NEGATIVE (NEGATIVE); KETONES,URINE NEGATIVE (NEGATIVE); LEUKOCYTE ESTERASE ,URINE 1+ (NEGATIVE); NITRITE,URINE NEGATIVE (NEGATIVE); PH,URINE 6 (5-9); PROTEIN,URINE 2+ (NEGATIVE); UROBILINOGEN,URINE NORMAL (NORMAL)
[2018-07-31] MEDS ORDERED: ONDANSETRON 4 MG/2 ML (SDV) Z0FRAN IVP ONE (12:30)
[2018-07-31 12:36] LABS: BACTERIA,URINE NEGATIVE /HPF; RBC,URINE RARE /HPF; WBC,URINE RARE /HPF
--- NOTE | 2018-07-31 12:39 | ED General ---
General Chief Complaint: General Problems/Pain Stated Complaint: BACK PAIN History of Present Illness Date Seen by Provider: Jul 31, 2018 Time Seen by Provider: 12:15 Initial Comments 58-year-old female presents for multitude locations of pain. She was diagnosed on July 15 of this year with lung cancer and metastasis to the adrenal gland. She had an renal gland biopsy 3 days ago. She has been taking 1/ 2 hydrocodone/apap 5/325 and Zofran approximately every 6 hours but having persistent vomiting. She does not feel her pain is being adequately managed at this time. She has had no new injuries or falls. She also has a noted sebaceous cyst below her left breast that Dr. Green had planned to excise but now is on hold until Dr Pollock gets her latest biopsy results and she has a plan for chemo/radiation. She is very anxious and easily agitated. She was prescribed Xanax but hasn't been taking it because the pharmacist told her she would need Narcan or could possibly quit breathing if she took hydrocodone and xanax. Her daughter is present with her and tearful. They admit this has been a whirlwind since diagnosis this month. She is getting some sleep, once the pain medicine controls the pain and she isn't vomiting, but she sleeps about 3 hours and the cycle starts over again. She is taking minimal solid food but adequate water. Timing/Duration: 3-4 Days Severity: Severe (07/20) Modifying Factors: improves with Medication (some control of her pain after hydrocodone.), improves with Rest Associated Systoms: No Chest Pain; Cough; No Diaphoresis, No Fever/Chills; Loss of Appetite, Malaise, Nausea/Vomiting; No Seizure, No Shortness of Air, No Syncope, No Weakness Allergies and Home Medications Allergies Coded Allergies: NSAIDS (Non-Steroidal Anti-Inflamma (Verified Allergy, Mild, HIVES, ) Home Medications Alprazolam 0.5 Mg Tablet, 0.5 MG PO Q8H PRN for ANXIETY Prescribed by: SHUKRI KIRK on 07/15/18 1444 Alprazolam 0.25 Mg Tablet, 0.25 MG PO Q8H Prescribed by: JHON RICHARDSON on 07/31/18 1333 Aspirin 81 Mg Tablet.dr, 81 MG PO DAILY, (Reported) Estradiol 1 Mg Tablet, 1 MG PO DAILY, (Reported) Famotidine 20 Mg Tablet, 20 MG PO BID, (Reported) Fentanyl 1 Each Patch.td72, 25 MCG TD Q72H Prescribed by: JHON RICHARDSON on 07/31/18 1252 Hydrocodone Bit/Acetaminophen 1 Tab Tab, 1 EACH PO Q4H PRN for PAIN-MODERATE Prescribed by: SHUKRI KIRK on 07/15/18 1442 Lisinopril 10 Mg Tablet, 10 MG PO DAILY, (Reported) Ondansetron 4 Mg Tab.rapdis, 4 MG PO Q6H PRN for NAUSEA/VOMITING Prescribed by: SHUKRI KIRK on 07/15/18 1442 Ondansetron 8 Mg Tab.rapdis, 8 MG PO Q8H Prescribed by: JHON RICHARDSON on 07/31/18 1333 Paroxetine HCl 10 Mg Tablet, 10 MG PO DAILY, (Reported) Patient Home Medication List Home Medication List Reviewed: Yes Review of Systems Review of Systems Constitutional: no symptoms reported, see HPI Respiratory: no symptoms reported, see HPI, cough; No hemoptysis, No short of breath Cardiovascular: no symptoms reported, see HPI Gastrointestinal: see HPI; No abdominal pain, No jaundice; loss of appetite, nausea, vomiting Musculoskeletal: see HPI, back pain Psychiatric/Neurological: See HPI, Anxiety All Other Systems Reviewed Negative Unless Noted: Yes Past Erjgqnb-Wrshzt-Klatmm Hx Past Med/Social Hx: Reviewed Nursing Past Med/Soc Hx Patient Social History Alcohol Beverage of Choice: Vodka Type Used: Cigarettes Recent Foreign Travel: No Contact w/Someone Who Travel: No Recent Hopitalizations: No Seasonal Allergies Seasonal Allergies: Yes Past Medical History Surgeries: Yes (right oophorectomy with salpingectomy) Appendectomy, Tonsillectomy, Tubal Ligation Respiratory: Yes Chronic Bronchitis Currently Using CPAP: No Cardiac: No Hypertension Neurological: No Reproductive Disorders: No Sexually Transmitted Disease: No HIV/AIDS: No Gastrointestinal: Yes (ULCER AT ONE TIME) Hiatal Hernia Musculoskeletal: No Endocrine: No Cancer: No Lung Did You Recieve Any Treatments: Yes Psychosocial: No Anxiety, Depression Integumentary: No Blood Disorders: No Adverse Reaction/Blood Tranf: No (N/A) Family Medical History No Pertinent Family Hx Physical Exam Vital Signs Vital Signs - First Documented 07/31/18 12:01 Temp 98.1 Pulse 108 B/P (MAP) 122/104 (110) Pulse Ox 98 O2 Delivery Room Air Capillary Refill : Height, Weight, BMI Height: 5'2.00" Weight: 110lbs. 6.0oz. 50.599261jw; 20.2 BMI Method:Stated General Appearance: WD/WN, Anxious, Thin Eyes: Bilateral Eye Normal Inspection, Bilateral Eye PERRL, Bilateral Eye EOMI HEENT: PERRL/EOMI, TMs Normal, Normal ENT Inspection, Pharynx Normal, Moist Mucous Membranes Neck: Full Range of Motion, Normal Inspection, Non Tender, Supple Respiratory: Lungs Clear, Normal Breath Sounds Cardiovascular: Regular Rate, Rhythm, No Edema, No Murmur, Normal Peripheral Pulses Gastrointestinal: Normal Bowel Sounds, Non Tender, Soft Back: Normal Inspection, No CVA Tenderness, No Vertebral Tenderness; No Decreased Range of Motion; Muscle Spasm; No Vertebral Tenderness Extremity: Normal Inspection, Normal Range of Motion, No Pedal Edema, Pelvis Stable Neurologic/Psychiatric: Alert, Oriented x3, No Motor/Sensory Deficits Skin: Normal Color, Warm/Dry Progress/Results/Core Measures Suspected Sepsis SIRS Temperature: Pulse: Respiratory Rate: Laboratory Tests 07/31/18 12:35: White Blood Count 12.2H Blood Pressure / Mean: Laboratory Tests 07/31/18 12:35: Creatinine 0.72, Platelet Count 539H, Total Bilirubin 0.4 Results/Orders Lab Results Laboratory Tests Test 07/31/18 12:22 07/31/18 12:35 Range/Units Urine Color YELLOW Urine Clarity SLIGHTLY CLOUDY Urine pH 6 5-9 Urine Specific Thornton 1.010 L 1.016-1.022 Urine Protein 2+ H NEGATIVE Urine Glucose (UA) NEGATIVE NEGATIVE Urine Ketones NEGATIVE NEGATIVE Urine Nitrite NEGATIVE NEGATIVE Urine Bilirubin NEGATIVE NEGATIVE Urine Urobilinogen NORMAL NORMAL MG/DL Urine Leukocyte Esterase 1+ H NEGATIVE Urine RBC (Auto) 2+ H NEGATIVE Urine RBC RARE /HPF Urine WBC RARE /HPF Urine Squamous Epithelial Cells 5-10 /HPF Urine Crystals NONE /LPF Urine Bacteria NEGATIVE /HPF Urine Casts NONE /LPF Urine Mucus NEGATIVE /LPF Urine Culture Indicated NO White Blood Count 12.2 H 4.3-11.0 10^3/uL Red Blood Count 4.07 L 4.35-5.85 10^6/uL Hemoglobin 12.5 11.5-16.0 G/DL Hematocrit 37 35-52 % Mean Corpuscular Volume 90 80-99 FL Mean Corpuscular Hemoglobin 31 25-34 PG Mean Corpuscular Hemoglobin Concent 34 32-36 G/DL Red Cell Distribution Width 12.1 10.0-14.5 % Platelet Count 539 H 130-400 10^3/uL Mean Platelet Volume 8.4 7.4-10.4 FL Neutrophils (%) (Auto) 78 H 42-75 % Lymphocytes (%) (Auto) 13 12-44 % Monocytes (%) (Auto) 9 0-12 % Eosinophils (%) (Auto) 0 0-10 % Basophils (%) (Auto) 0 0-10 % Neutrophils # (Auto) 9.5 H 1.8-7.8 X 10^3 Lymphocytes # (Auto) 1.6 1.0-4.0 X 10^3 Monocytes # (Auto) 1.1 H 0.0-1.0 X 10^3 Eosinophils # (Auto) 0.0 0.0-0.3 10^3/uL Basophils # (Auto) 0.0 0.0-0.1 10^3/uL Sodium Level 125 *L 135-145 MMOL/L Potassium Level 5.3 H 3.6-5.0 MMOL/L Chloride Level 88 L 98-107 MMOL/L Carbon Dioxide Level 24 21-32 MMOL/L Anion Gap 13 5-14 MMOL/L Blood Urea Nitrogen 11 7-18 MG/DL Creatinine 0.72 0.60-1.30 MG/DL Estimat Glomerular Filtration Rate > 60 BUN/Creatinine Ratio 15 Glucose Level 91 70-105 MG/DL Calcium Level 9.7 8.5-10.1 MG/DL Corrected Calcium 9.9 8.5-10.1 MG/DL Total Bilirubin 0.4 0.1-1.0 MG/DL Aspartate Amino Transf (AST/SGOT) 20 5-34 U/L Alanine Aminotransferase (ALT/SGPT) 20 0-55 U/L Alkaline Phosphatase 117 40-136 U/L Total Protein 6.8 6.4-8.2 GM/DL Albumin 3.8 3.2-4.5 GM/DL My Orders Orders - JHON RICHARDSON Cbc With Automated Diff (07/31/18 12:20) Comprehensive Metabolic Panel (07/31/18 12:20) Ua Culture If Indicated (07/31/18 12:20) Saline Lock/Iv-Start (07/31/18 12:20) Ns Iv 500 Ml (Sodium Chloride 0.9%) (07/31/18 12:20) Ondansetron Injection (Zofran Injectio (07/31/18 12:30) Fentanyl Injection (Sublimaze Injection (07/31/18 12:20) Osmolality Serum (07/31/18 13:08) Medications Given in ED Current Medications Medications Dose Ordered Sig/Yovana Route Start Time Stop Time Status Last Admin Dose Admin Ondansetron HCl 4 mg ONCE ONCE IVP 07/31/18 12:30 07/31/18 12:31 DC 07/31/18 12:49 4 MG Sodium Chloride 500 ml @ 0 mls/hr Q0M ONCE IV 07/31/18 12:20 07/31/18 12:21 DC 07/31/18 12:48 500 MLS/HR Vital Signs/I&O 07/31/18 12:01 Temp 98.1 Pulse 108 B/P (MAP) 122/104 (110) Pulse Ox 98 O2 Delivery Room Air Capillary Refill : Progress Note : Time: 12:15 Progress Note Patient seen and evaluated, recommended obtaining labs, normal saline 500 ML's IV for hydration, Zofran 4 mg IV for nausea, fentanyl 50 g IV for pain. I will continue to monitor the patient and adjust regimen as indicated. Did discuss that the patient discontinue the hydrocodone and conside fentanyl patches for better pain control. 1300 patient reports improvement in pain and nausea. IV fluids infusing. Sodium 125, taking Pedialyte. She reports minimal food intake and only water, likely cause Hypovolemia and dilutional hyponatremia secondary to vomiting and poor PO intake. Will check serum osmolality. No other symptoms of hyponatremia. 1330 on second glass of Pedialyte. No nausea. Patient and daughter in agreement to d/c Hydrocodone and use Fentanyl patch. Serum osmolality 8 send out lab, would not have results in 2 days, discontinue disorder. 1345 patient reports to be feeling much improved, and desiring discharge to home. She understands importance to hydrate and eat small frequent meals. She will follow-up with Dr. Pollock or Dr. Green in the next 2-3 days if her symptoms are not improving or worsen. Discharge instructions and return precautions were reviewed with her in detail. Changes to her medication regimen were discussed in detail with her and her daughter and they felt this will be a much better plan of action to control her pain and anxiety, hopefully with less nausea. Assured her it is safe to take 1/2 to 1 of her Xanax 0.25 mg and her pain medication, if it makes her feel overly sedated, discontinue the Xanax and return to Emergency Dept or contact her medical providers. Her daughter is with her the majority of the time and will observe for changes. Departure Impression Primary Impression: Lung cancer, primary, with metastasis from lung to other site Qualified Codes: C34.91 - Malignant neoplasm of unspecified part of right bronchus or lung Additional Impressions: Generalized pain Dilutional hyponatremia Disposition: HOME, SELF-CARE Condition: Improved Departure-Patient Inst. Decision time for Depature: 13:40 Referrals: RACHELLE GREEN MD (PCP/Family) Primary Care Physician Patient Instructions: Cancer Pain Syndromes (DC), Nausea and Vomiting, Adult ( DC) Add. Discharge Instructions: Discontinue the Hydrocodone. Apply 1 Fentanyl Patch, every 72 hours remove this patch and apply a new one. Call the Cancer Center on Wednesday if your symptoms are not improving or worsen. Continue to take the Zofran every 6 hours as needed for nausea. Eat small/frequent meals. Increase fluid intake. Drink 1 glass of Pedialyte 3 times daily. Take Xanax 0.25 mg 1 every 8 hours for anxiety/agitation from pain. You have 0.5 mg at home, you can take 1/2 of these until you get new prescription. Return to emergency department if changes in level of consciousness, confusion, seizures, nausea and vomiting that is not improving with Zofran, pain not relieved with fentanyl, or new problems. All discharge instructions reviewed with patient and/or family. Voiced understanding. Scripts Alprazolam (Xanax) 0.25 Mg Tablet 0.25 MG PO Q8H, #20 TAB 0 Refills Prov: JHON RICHARDSON 07/31/18 Ondansetron (Zofran Odt) 8 Mg Tab.rapdis 8 MG PO Q8H, #12 TAB Prov: JHON RICHARDSONP 07/31/18 Fentanyl (Duragesic Patch 25MCG) 1 Each Patch.td72 25 MCG TD Q72H, #3 PATCH 0 Refills Prov: JHON RICHARDSON 07/31/18 Copy Copies To 1: KINDRA FALK Copies To 2: RACHELLE GREEN MD, AMY ARNP Jul 31, 2018 12:39
[2018-07-31 12:40] LABS: BASOPHILS % (AUTO) 0 % (0-10); EOSINOPHILS % (AUTO) 0 % (0-10); HEMATOCRIT 37 % (35-52); HEMOGLOBIN 12.5 G/DL (11.5-16.0); LYMPHOCYTES # (AUTO) 1.6 X 10^3 (1.0-4.0); LYMPHOCYTES % (AUTO) 13 % (12-44); MEAN CORPUSCULAR HEMOGLOBIN 31 PG (25-34); MEAN CORPUSCULAR HGB CONC 34 G/DL (32-36); MEAN CORPUSCULAR VOLUME 90 FL (80-99); MEAN PLATELET VOLUME 8.4 FL (7.4-10.4); MONOCYTES # (AUTO) 1.1 X 10^3 (0.0-1.0); MONOCYTES % (AUTO) 9 % (0-12); NEUTROPHILS # (AUTO) 9.5 X 10^3 (1.8-7.8); NEUTROPHILS % (AUTO) 78 % (42-75); PLATELET COUNT 539 10^3/uL (130-400); RED BLOOD COUNT 4.07 10^6/uL (4.35-5.85); RED CELL DISTRIBUTION WIDTH 12.1 % (10.0-14.5); WHITE BLOOD COUNT 12.2 10^3/uL (4.3-11.0)
[2018-07-31] MEDS ORDERED: FENT1PAT57 TD (12:52)
[2018-07-31 12:59] LABS: ALANINE AMINOTRANSFERASE 20 U/L (0-55); ALBUMIN 3.8 GM/DL (3.2-4.5); ALKALINE PHOSPHATASE 117 U/L (40-136); BILIRUBIN,TOTAL 0.4 MG/DL (0.1-1.0); BUN/CREATININE RATIO 15; CALCIUM 9.7 MG/DL (8.5-10.1); CARBON DIOXIDE 24 MMOL/L (21-32); CHLORIDE 88 MMOL/L (98-107); CREATININE SERUM 0.72 MG/DL (0.60-1.30); GFR ESTIMATED > 60; GLUCOSE 91 MG/DL (70-105); POTASSIUM 5.3 MMOL/L (3.6-5.0); TOTAL PROTEIN 6.8 GM/DL (6.4-8.2)
[2018-07-31 13:03] LABS: SODIUM 125 MMOL/L (135-145)
[2018-07-31] MEDS ORDERED: ONDA8TAB9 PO (13:33)
[2018-07-31] MEDS ORDERED: ALPR0.25 PO (13:33)
[2018-07-31 14:22] VITALS: BP 100/64
== END 2018-07-31 14:22 | disposition home or self-care (01) ==
LOC: EDUNIT# 11:58 → ER 11:59
DX: C34.91 Malignant neoplasm of unspecified part of right bronchus or lung (principal); C79.70 Secondary malignant neoplasm of unspecified adrenal gland; R52 Pain, unspecified; E87.1 Hypo-osmolality and hyponatremia; I10 Essential (primary) hypertension; F41.9 Anxiety disorder, unspecified; F32.9 Major depressive disorder, single episode, unspecified; Z87.19 Personal history of other diseases of the digestive system; Z88.6 Allergy status to analgesic agent; Z79.82 Long term (current) use of aspirin; Z98.51 Tubal ligation status; Z90.89 Acquired absence of other organs; Z90.722 Acquired absence of ovaries, bilateral
CPT/HCPCS: 36415; 80053; 81000; 85025

== ENCOUNTER 2018-08-14 00:40 | Emergency (ER) | payer OTHER ==
[~2018-08-14] VITALS: Ht 157.5 cm; Wt 50.1 kg
[~2018-08-14 00:40] MED LIST changes: +ALPR0.25 PO; +FENT1PAT57 TD; +ONDA8TAB9 PO
[2018-08-14] MEDS ORDERED: HYDROmorphone 2 MG/ML VIAL (DILAUDID) IV STA ×2 (00:54→02:05)
[2018-08-14] MEDS ORDERED: NS IV 1000 ML 1,000 ML IV ONE (00:54)
[2018-08-14] MEDS ORDERED: ONDANSETRON 4 MG/2 ML (SDV) Z0FRAN IVP ONE (01:00)
--- NOTE | 2018-08-14 01:10 | ED General ---
General Stated Complaint: BACK PAIN Source of Information: Patient Exam Limitations: No Limitations History of Present Illness Date Seen by Provider: Aug 14, 2018 Time Seen by Provider: 00:50 Initial Comments Here with report of right sided back pain and flank pain. Patient has known history of lung cancer and adrenal cancer on the right side and is currently undergoing chemotherapy. She is had 2 rounds of chemotherapy on Wednesday last week in the week before. Denies fevers. Does have some nausea without vomiting. Pain is not controlled with her fentanyl patch and breakthrough pain medicine. She has tried that a few times tonight and that has not helped. States pain is been going on for 2 days and is worsening. Timing/Duration: 1-2 Days, Getting Worse Severity: Moderate, Severe Modifying Factors: improves with Medication Associated Systoms: No Cough, No Fever/Chills; Nausea/Vomiting; No Shortness of Air, No Weakness Allergies and Home Medications Allergies Coded Allergies: NSAIDS (Non-Steroidal Anti-Inflamma (Verified Allergy, Mild, HIVES, ) Home Medications Alprazolam 0.5 Mg Tablet, 0.5 MG PO Q8H PRN for ANXIETY Prescribed by: SHUKRI KIRK on 07/15/18 1444 Alprazolam 0.25 Mg Tablet, 0.25 MG PO Q8H Prescribed by: JHON RICHARDSON on 07/31/18 1333 Aspirin 81 Mg Tablet.dr, 81 MG PO DAILY, (Reported) Estradiol 1 Mg Tablet, 1 MG PO DAILY, (Reported) Famotidine 20 Mg Tablet, 20 MG PO BID, (Reported) Fentanyl 1 Each Patch.td72, 25 MCG TD Q72H Prescribed by: JHON RICHARDSON on 07/31/18 1252 Hydrocodone Bit/Acetaminophen 1 Tab Tab, 1 EACH PO Q4H PRN for PAIN-MODERATE Prescribed by: SHUKRI KIRK on 07/15/18 1442 Lisinopril 10 Mg Tablet, 10 MG PO DAILY, (Reported) Ondansetron 4 Mg Tab.rapdis, 4 MG PO Q6H PRN for NAUSEA/VOMITING Prescribed by: SHUKRI KIRK on 07/15/18 1442 Ondansetron 8 Mg Tab.rapdis, 8 MG PO Q8H Prescribed by: JHON RICHARDSON on 07/31/18 1333 Paroxetine HCl 10 Mg Tablet, 10 MG PO DAILY, (Reported) Patient Home Medication List Home Medication List Reviewed: Yes Review of Systems Review of Systems Constitutional: see HPI; No chills, No fever EENTM: no symptoms reported Respiratory: No short of breath, No wheezing Cardiovascular: no symptoms reported Gastrointestinal: abdominal pain, nausea; No vomiting Genitourinary: see HPI Musculoskeletal: see HPI, back pain; No muscle pain Skin: no symptoms reported Psychiatric/Neurological: No Symptoms Reported All Other Systems Reviewed Negative Unless Noted: Yes Past Flemdke-Zzbthr-Krizkh Hx Past Med/Social Hx: Reviewed Nursing Past Med/Soc Hx Patient Social History Alcohol Use: Occasionally Uses Alcohol Beverage of Choice: Vodka Recreational Drug Use: No Smoking Status: Current Everyday Smoker Type Used: Cigarettes Recent Foreign Travel: No Contact w/Someone Who Travel: No Recent Hopitalizations: No Immunizations Up To Date Tetanus Booster (TDap): Unknown Seasonal Allergies Seasonal Allergies: Yes Past Medical History Surgeries: Yes (right oophorectomy with salpingectomy) Appendectomy, Tonsillectomy, Tubal Ligation Respiratory: Yes (LUNG CA) Chronic Bronchitis Currently Using CPAP: No Cardiac: Yes Hypertension Neurological: No Reproductive Disorders: No Sexually Transmitted Disease: No HIV/AIDS: No Gastrointestinal: Yes (ULCER AT ONE TIME) Hiatal Hernia Musculoskeletal: No Endocrine: No Cancer: Yes Lung Did You Recieve Any Treatments: Yes Psychosocial: No Anxiety, Depression Integumentary: No Blood Disorders: No Adverse Reaction/Blood Tranf: No (N/A) Family Medical History Reviewed Nursing Family Hx No Pertinent Family Hx Physical Exam Vital Signs Vital Signs - First Documented 08/14/18 01:28 Temp 98.2 Pulse 92 Resp 18 B/P (MAP) 109/63 (78) Pulse Ox 93 O2 Delivery Room Air Capillary Refill : Height, Weight, BMI Height: 5'2.00" Weight: 110lbs. 6.0oz. 49.995807ol; 20.2 BMI Method:Stated General Appearance: WD/WN, Moderate Distress HEENT: PERRL/EOMI, Pharynx Normal Neck: Non Tender, Supple Respiratory: Lungs Clear, Normal Breath Sounds Cardiovascular: Regular Rate, Rhythm, No Murmur Gastrointestinal: Non Tender, Soft Back: Normal Inspection, No Vertebral Tenderness; No CVA Tenderness (L); CVA Tenderness (R) Extremity: Normal Range of Motion, Non Tender Neurologic/Psychiatric: Alert, Oriented x3 Skin: Normal Color, Warm/Dry Progress/Results/Core Measures Suspected Sepsis SIRS Temperature: Pulse: Respiratory Rate: Laboratory Tests 08/14/18 01:28: White Blood Count 9.1 Blood Pressure / Mean: Laboratory Tests 08/14/18 01:28: Creatinine 0.62, Platelet Count 383, Total Bilirubin 0.4 Results/Orders Lab Results Laboratory Tests Test 08/14/18 01:16 08/14/18 01:28 Range/Units Urine Color YELLOW Urine Clarity CLEAR Urine pH 5 5-9 Urine Specific [place] 1.005 L 1.016-1.022 Urine Protein NEGATIVE NEGATIVE Urine Glucose (UA) NEGATIVE NEGATIVE Urine Ketones NEGATIVE NEGATIVE Urine Nitrite NEGATIVE NEGATIVE Urine Bilirubin NEGATIVE NEGATIVE Urine Urobilinogen NORMAL NORMAL MG/DL Urine Leukocyte Esterase NEGATIVE NEGATIVE Urine RBC (Auto) NEGATIVE NEGATIVE Urine RBC NONE /HPF Urine WBC NONE /HPF Urine Squamous Epithelial Cells 0-2 /HPF Urine Crystals NONE /LPF Urine Bacteria NEGATIVE /HPF Urine Casts NONE /LPF Urine Mucus NEGATIVE /LPF Urine Culture Indicated NO White Blood Count 9.1 4.3-11.0 10^3/uL Red Blood Count 3.86 L 4.35-5.85 10^6/uL Hemoglobin 11.5 11.5-16.0 G/DL Hematocrit 34 L 35-52 % Mean Corpuscular Volume 89 80-99 FL Mean Corpuscular Hemoglobin 30 25-34 PG Mean Corpuscular Hemoglobin Concent 34 32-36 G/DL Red Cell Distribution Width 12.3 10.0-14.5 % Platelet Count 383 130-400 10^3/uL Mean Platelet Volume 9.0 7.4-10.4 FL Neutrophils (%) (Auto) 79 H 42-75 % Lymphocytes (%) (Auto) 15 12-44 % Monocytes (%) (Auto) 5 0-12 % Eosinophils (%) (Auto) 1 0-10 % Basophils (%) (Auto) 0 0-10 % Neutrophils # (Auto) 7.2 1.8-7.8 X 10^3 Lymphocytes # (Auto) 1.3 1.0-4.0 X 10^3 Monocytes # (Auto) 0.5 0.0-1.0 X 10^3 Eosinophils # (Auto) 0.1 0.0-0.3 10^3/uL Basophils # (Auto) 0.0 0.0-0.1 10^3/uL Sodium Level 122 *L 135-145 MMOL/L Potassium Level 4.7 3.6-5.0 MMOL/L Chloride Level 89 L 98-107 MMOL/L Carbon Dioxide Level 21 21-32 MMOL/L Anion Gap 12 5-14 MMOL/L Blood Urea Nitrogen 12 7-18 MG/DL Creatinine 0.62 0.60-1.30 MG/DL Estimat Glomerular Filtration Rate > 60 BUN/Creatinine Ratio 19 Glucose Level 102 70-105 MG/DL Calcium Level 9.1 8.5-10.1 MG/DL Corrected Calcium 9.4 8.5-10.1 MG/DL Total Bilirubin 0.4 0.1-1.0 MG/DL Aspartate Amino Transf (AST/SGOT) 19 5-34 U/L Alanine Aminotransferase (ALT/SGPT) 21 0-55 U/L Alkaline Phosphatase 99 40-136 U/L C-Reactive Protein High Sensitivity 5.92 H 0.00-0.50 MG/DL Total Protein 6.3 L 6.4-8.2 GM/DL Albumin 3.6 3.2-4.5 GM/DL My Orders Orders - SHUKRI KIRK MD Cbc With Automated Diff (08/14/18 00:54) Comprehensive Metabolic Panel (08/14/18 00:54) Hs C Reactive Protein (08/14/18 00:54) Saline Lock/Iv-Start (08/14/18 00:54) Ns Iv 1000 Ml (Sodium Chloride 0.9%) (08/14/18 00:54) Ondansetron Injection (Zofran Injectio (08/14/18 01:00) Hydromorphone Injection (Dilaudid Inject (08/14/18 00:54) Chest Pa/Lat (2 View) (08/14/18 01:06) Ua Culture If Indicated (08/14/18 01:10) Medications Given in ED Current Medications Medications Dose Ordered Sig/Yovana Route Start Time Stop Time Status Last Admin Dose Admin Ondansetron HCl 4 mg ONCE ONCE IVP 08/14/18 01:00 08/14/18 01:01 DC 08/14/18 01:12 4 MG Sodium Chloride 1,000 ml @ 0 mls/hr Q0M ONCE IV 08/14/18 00:54 08/14/18 00:57 DC 08/14/18 01:12 1,000 MLS/HR Vital Signs/I&O 08/14/18 01:28 Temp 98.2 Pulse 92 Resp 18 B/P (MAP) 109/63 (78) Pulse Ox 93 O2 Delivery Room Air Capillary Refill : Progress Note : Progress Note Seen and evaluated. IV via port access. Labs, normal saline 1 L bolus, Zofran 4 mg IV and Dilaudid 1 mg IV ordered. Monitor patient. 0110 (daylight savings time off now) two-view chest x-ray ordered as well as UA. Pain is improved. Sodium is low which is historical normal for her recently. Patient admits to not eating or drinking well after the chemotherapy. IV fluids given earlier will help. Monitor patient. 0206: Repeat Dilaudid 0.5 mg IV. Patient much better now. She will continue to drink electrolyte containing solutions at home. Discharged home with return precautions. Patient verbalize understanding instructions and agreement with plan. Diagnostic Imaging Diagonstic Imaging: Xray Plain Films/CT/US/NM/MRI: chest Comments Persistent right upper lobe mass noted on x-ray. No obvious infiltrate. Departure Impression Primary Impression: Cancer related pain Additional Impressions: Lung cancer Qualified Codes: C34.11 - Malignant neoplasm of upper lobe, right bronchus or lung Adrenal cancer Qualified Codes: C74.91 - Malignant neoplasm of unspecified part of right adrenal gland Disposition: 01 HOME, SELF-CARE Condition: Improved Departure-Patient Inst. Decision time for Depature: 02:08 Referrals: RACHELLE VELASQUEZ MD (PCP/Family) Primary Care Physician Patient Instructions: Cancer Pain Syndromes (DC) Add. Discharge Instructions: Continue home medications as previously prescribed. Follow-up with your doctor on Wednesday for recheck and further evaluation. Return for worse pain, fever, vomiting, weakness, breathing problems or other concerns as needed. It is important that he continue to drink Pedialyte or Gatorade to help improve your sodium level. Try to eat a normal diet. SHUKRI KIRK MD Aug 14, 2018 01:10
[2018-08-14 01:35] LABS: BASOPHILS % (AUTO) 0 % (0-10); EOSINOPHILS # (AUTO) 0.1 10^3/uL (0.0-0.3); EOSINOPHILS % (AUTO) 1 % (0-10); HEMATOCRIT 34 % (35-52); HEMOGLOBIN 11.5 G/DL (11.5-16.0); LYMPHOCYTES # (AUTO) 1.3 X 10^3 (1.0-4.0); LYMPHOCYTES % (AUTO) 15 % (12-44); MEAN CORPUSCULAR HEMOGLOBIN 30 PG (25-34); MEAN CORPUSCULAR HGB CONC 34 G/DL (32-36); MEAN CORPUSCULAR VOLUME 89 FL (80-99); MONOCYTES # (AUTO) 0.5 X 10^3 (0.0-1.0); MONOCYTES % (AUTO) 5 % (0-12); NEUTROPHILS # (AUTO) 7.2 X 10^3 (1.8-7.8); NEUTROPHILS % (AUTO) 79 % (42-75); PLATELET COUNT 383 10^3/uL (130-400); RED BLOOD COUNT 3.86 10^6/uL (4.35-5.85); RED CELL DISTRIBUTION WIDTH 12.3 % (10.0-14.5); WHITE BLOOD COUNT 9.1 10^3/uL (4.3-11.0)
[2018-08-14 01:36] LABS: BILIRUBIN,URINE NEGATIVE (NEGATIVE); CLARITY,URINE CLEAR; COLOR,URINE YELLOW; GLUCOSE, URINE (UA) NEGATIVE (NEGATIVE); KETONES,URINE NEGATIVE (NEGATIVE); LEUKOCYTE ESTERASE ,URINE NEGATIVE (NEGATIVE); NITRITE,URINE NEGATIVE (NEGATIVE); PH,URINE 5 (5-9); PROTEIN,URINE NEGATIVE (NEGATIVE); UROBILINOGEN,URINE NORMAL (NORMAL)
[2018-08-14 01:37] LABS: BACTERIA,URINE NEGATIVE /HPF; SQUAMOUS EPITHELIAL CELL,UR 0-2 /HPF
[2018-08-14 01:53] LABS: ALANINE AMINOTRANSFERASE 21 U/L (0-55); ALBUMIN 3.6 GM/DL (3.2-4.5); ALKALINE PHOSPHATASE 99 U/L (40-136); BILIRUBIN,TOTAL 0.4 MG/DL (0.1-1.0); BUN/CREATININE RATIO 19; CALCIUM 9.1 MG/DL (8.5-10.1); CARBON DIOXIDE 21 MMOL/L (21-32); CHLORIDE 89 MMOL/L (98-107); CREATININE SERUM 0.62 MG/DL (0.60-1.30); GFR ESTIMATED > 60; GLUCOSE 102 MG/DL (70-105); POTASSIUM 4.7 MMOL/L (3.6-5.0); TOTAL PROTEIN 6.3 GM/DL (6.4-8.2)
[2018-08-14 01:56] LABS: SODIUM 122 MMOL/L (135-145)
[2018-08-14 02:20] VITALS: BP 112/64
--- NOTE | 2018-08-14 05:52 | Diagnostic Imaging Report ---
INDICATION: Right lung mass PA and lateral chest There is a large lobulated mass in the right apex measuring approximately 8 x 10 cm. There are some emphysematous changes at the left apex. Left subclavian Port-A-Cath tip projects over the SVC. IMPRESSION: No change in the chest since 07/15/2018. Large right upper lobe consolidation suspicious for neoplasm again noted. Dictated by: Dictated on workstation # [id number]
== END 2018-08-14 02:20 | disposition home or self-care (01) ==
LOC: EDUNIT# 00:40 → ER 00:42
DX: G89.3 Neoplasm related pain (acute) (chronic) (principal); M54.9 Dorsalgia, unspecified; C34.11 Malignant neoplasm of upper lobe, right bronchus or lung; C74.91 Malignant neoplasm of unspecified part of right adrenal gland; F17.210 Nicotine dependence, cigarettes, uncomplicated; J42 Unspecified chronic bronchitis; I10 Essential (primary) hypertension; F41.9 Anxiety disorder, unspecified; F32.9 Major depressive disorder, single episode, unspecified; Z90.49 Acquired absence of other specified parts of digestive tract; Z90.89 Acquired absence of other organs; Z98.51 Tubal ligation status; Z88.6 Allergy status to analgesic agent; Z79.82 Long term (current) use of aspirin
CPT/HCPCS: 36415; 71046; 80053; 81000; 85025; 86141; 96361; 96374; 96375; 96376

== ENCOUNTER 2018-09-05 09:52 | Outpatient (RCR) | payer OTHER ==
[2018-08-02 11:53] LABS: BASOPHILS % (AUTO) 0 % (0-10); EOSINOPHILS % (AUTO) 0 % (0-10); HEMATOCRIT 36 % (35-52); HEMOGLOBIN 11.8 G/DL (11.5-16.0); LYMPHOCYTES # (AUTO) 0.6 X 10^3 (1.0-4.0); LYMPHOCYTES % (AUTO) 5 % (12-44); MEAN CORPUSCULAR HEMOGLOBIN 29 PG (25-34); MEAN CORPUSCULAR HGB CONC 33 G/DL (32-36); MEAN CORPUSCULAR VOLUME 90 FL (80-99); MEAN PLATELET VOLUME 8.8 FL (7.4-10.4); MONOCYTES # (AUTO) 0.5 X 10^3 (0.0-1.0); MONOCYTES % (AUTO) 4 % (0-12); NEUTROPHILS # (AUTO) 12.6 X 10^3 (1.8-7.8); NEUTROPHILS % (AUTO) 92 % (42-75); PLATELET COUNT 512 10^3/uL (130-400); RED BLOOD COUNT 4.03 10^6/uL (4.35-5.85); RED CELL DISTRIBUTION WIDTH 11.9 % (10.0-14.5); WHITE BLOOD COUNT 13.7 10^3/uL (4.3-11.0)
[2018-08-02 12:07] LABS: BUN/CREATININE RATIO 15; CALCIUM 9.6 MG/DL (8.5-10.1); CARBON DIOXIDE 22 MMOL/L (21-32); CHLORIDE 92 MMOL/L (98-107); CREATININE SERUM 0.72 MG/DL (0.60-1.30); GFR ESTIMATED > 60; GLUCOSE 137 MG/DL (70-105); POTASSIUM 5.2 MMOL/L (3.6-5.0); SODIUM 126 MMOL/L (135-145)
[2018-08-09 10:10] LABS: BASOPHILS % (AUTO) 0 % (0-10); EOSINOPHILS % (AUTO) 0 % (0-10); HEMATOCRIT 36 % (35-52); HEMOGLOBIN 12.3 G/DL (11.5-16.0); LYMPHOCYTES # (AUTO) 0.8 X 10^3 (1.0-4.0); LYMPHOCYTES % (AUTO) 7 % (12-44); MEAN CORPUSCULAR HEMOGLOBIN 30 PG (25-34); MEAN CORPUSCULAR HGB CONC 34 G/DL (32-36); MEAN CORPUSCULAR VOLUME 89 FL (80-99); MEAN PLATELET VOLUME 8.7 FL (7.4-10.4); MONOCYTES # (AUTO) 0.2 X 10^3 (0.0-1.0); MONOCYTES % (AUTO) 2 % (0-12); NEUTROPHILS # (AUTO) 10.6 X 10^3 (1.8-7.8); NEUTROPHILS % (AUTO) 92 % (42-75); PLATELET COUNT 461 10^3/uL (130-400); RED BLOOD COUNT 4.05 10^6/uL (4.35-5.85); RED CELL DISTRIBUTION WIDTH 12.2 % (10.0-14.5); WHITE BLOOD COUNT 11.6 10^3/uL (4.3-11.0)
[2018-08-09 10:37] LABS: BUN/CREATININE RATIO 16; CALCIUM 9.6 MG/DL (8.5-10.1); CARBON DIOXIDE 23 MMOL/L (21-32); CHLORIDE 92 MMOL/L (98-107); CREATININE SERUM 0.68 MG/DL (0.60-1.30); GFR ESTIMATED > 60; GLUCOSE 139 MG/DL (70-105); MAGNESIUM 1.9 MG/DL (1.8-2.4); POTASSIUM 4.9 MMOL/L (3.6-5.0); SODIUM 127 MMOL/L (135-145)
[2018-08-16 11:38] LABS: BASOPHILS % (AUTO) 0 % (0-10); EOSINOPHILS % (AUTO) 0 % (0-10); HEMATOCRIT 34 % (35-52); HEMOGLOBIN 11.3 G/DL (11.5-16.0); LYMPHOCYTES # (AUTO) 0.4 X 10^3 (1.0-4.0); LYMPHOCYTES % (AUTO) 6 % (12-44); MEAN CORPUSCULAR HEMOGLOBIN 30 PG (25-34); MEAN CORPUSCULAR HGB CONC 33 G/DL (32-36); MEAN CORPUSCULAR VOLUME 90 FL (80-99); MEAN PLATELET VOLUME 9.3 FL (7.4-10.4); MONOCYTES # (AUTO) 0.1 X 10^3 (0.0-1.0); MONOCYTES % (AUTO) 1 % (0-12); NEUTROPHILS # (AUTO) 6.1 X 10^3 (1.8-7.8); NEUTROPHILS % (AUTO) 93 % (42-75); PLATELET COUNT 393 10^3/uL (130-400); RED CELL DISTRIBUTION WIDTH 12.7 % (10.0-14.5); WHITE BLOOD COUNT 6.6 10^3/uL (4.3-11.0)
[2018-08-16 12:00] LABS: BUN/CREATININE RATIO 16; CALCIUM 9.5 MG/DL (8.5-10.1); CARBON DIOXIDE 19 MMOL/L (21-32); CHLORIDE 93 MMOL/L (98-107); CREATININE SERUM 0.68 MG/DL (0.60-1.30); GFR ESTIMATED > 60; GLUCOSE 166 MG/DL (70-105); POTASSIUM 4.9 MMOL/L (3.6-5.0)
[2018-08-16 12:02] LABS: SODIUM 125 MMOL/L (135-145)
[2018-08-23 12:35] LABS: BASOPHILS % (AUTO) 1 % (0-10); EOSINOPHILS # (AUTO) 0.1 10^3/uL (0.0-0.3); EOSINOPHILS % (AUTO) 1 % (0-10); HEMATOCRIT 34 % (35-52); HEMOGLOBIN 11.5 G/DL (11.5-16.0); LYMPHOCYTES # (AUTO) 1.1 X 10^3 (1.0-4.0); LYMPHOCYTES % (AUTO) 17 % (12-44); MEAN CORPUSCULAR HEMOGLOBIN 30 PG (25-34); MEAN CORPUSCULAR HGB CONC 34 G/DL (32-36); MEAN CORPUSCULAR VOLUME 89 FL (80-99); MONOCYTES # (AUTO) 0.9 X 10^3 (0.0-1.0); MONOCYTES % (AUTO) 14 % (0-12); NEUTROPHILS # (AUTO) 4.4 X 10^3 (1.8-7.8); NEUTROPHILS % (AUTO) 68 % (42-75); PLATELET COUNT 376 10^3/uL (130-400); RED BLOOD COUNT 3.83 10^6/uL (4.35-5.85); RED CELL DISTRIBUTION WIDTH 13.3 % (10.0-14.5); WHITE BLOOD COUNT 6.5 10^3/uL (4.3-11.0)
[2018-08-23 12:49] LABS: BUN/CREATININE RATIO 9; CALCIUM 9.7 MG/DL (8.5-10.1); CARBON DIOXIDE 25 MMOL/L (21-32); CHLORIDE 89 MMOL/L (98-107); CREATININE SERUM 0.64 MG/DL (0.60-1.30); GFR ESTIMATED > 60; GLUCOSE 89 MG/DL (70-105); MAGNESIUM 1.8 MG/DL (1.8-2.4); POTASSIUM 4.9 MMOL/L (3.6-5.0)
[2018-08-23 12:54] LABS: SODIUM 124 MMOL/L (135-145)
[2018-08-23 14:06] LABS: BILIRUBIN,URINE NEGATIVE (NEGATIVE); COLOR,URINE YELLOW; GLUCOSE, URINE (UA) NEGATIVE (NEGATIVE); KETONES,URINE NEGATIVE (NEGATIVE); LEUKOCYTE ESTERASE ,URINE NEGATIVE (NEGATIVE); NITRITE,URINE NEGATIVE (NEGATIVE); PH,URINE 6 (5-9); PROTEIN,URINE NEGATIVE (NEGATIVE); UROBILINOGEN,URINE NORMAL (NORMAL)
[2018-08-23 14:13] LABS: BACTERIA,URINE NEGATIVE /HPF; CLARITY,URINE CLEAR; SQUAMOUS EPITHELIAL CELL,UR 0-2 /HPF
[2018-08-29 09:06] LABS: BASOPHILS % (AUTO) 0 % (0-10); EOSINOPHILS % (AUTO) 0 % (0-10); HEMATOCRIT 35 % (35-52); HEMOGLOBIN 11.3 G/DL (11.5-16.0); LYMPHOCYTES # (AUTO) 1.1 X 10^3 (1.0-4.0); LYMPHOCYTES % (AUTO) 11 % (12-44); MEAN CORPUSCULAR HEMOGLOBIN 29 PG (25-34); MEAN CORPUSCULAR HGB CONC 32 G/DL (32-36); MEAN CORPUSCULAR VOLUME 91 FL (80-99); MEAN PLATELET VOLUME 8.7 FL (7.4-10.4); MONOCYTES # (AUTO) 0.8 X 10^3 (0.0-1.0); MONOCYTES % (AUTO) 9 % (0-12); NEUTROPHILS # (AUTO) 7.8 X 10^3 (1.8-7.8); NEUTROPHILS % (AUTO) 80 % (42-75); PLATELET COUNT 365 10^3/uL (130-400); RED BLOOD COUNT 3.88 10^6/uL (4.35-5.85); RED CELL DISTRIBUTION WIDTH 13.8 % (10.0-14.5); WHITE BLOOD COUNT 9.7 10^3/uL (4.3-11.0)
[2018-08-29 09:33] LABS: ALANINE AMINOTRANSFERASE 24 U/L (0-55); ALBUMIN 3.6 GM/DL (3.2-4.5); ALKALINE PHOSPHATASE 159 U/L (40-136); BILIRUBIN,TOTAL 0.4 MG/DL (0.1-1.0); BUN/CREATININE RATIO 12; CALCIUM 9.5 MG/DL (8.5-10.1); CARBON DIOXIDE 27 MMOL/L (21-32); CHLORIDE 91 MMOL/L (98-107); CREATININE SERUM 0.77 MG/DL (0.60-1.30); GFR ESTIMATED > 60; GLUCOSE 111 MG/DL (70-105); MAGNESIUM 1.6 MG/DL (1.8-2.4); POTASSIUM 4.5 MMOL/L (3.6-5.0); SODIUM 129 MMOL/L (135-145); TOTAL PROTEIN 6.1 GM/DL (6.4-8.2)
[~2018-09-05] VITALS: Ht 162.6 cm; Wt 49.4 kg
[~2018-09-05 09:52] MED LIST changes: +ALTEPLASE 2 MG (CATHFLO) CANCER CENTER IV ONE; +CARBOPLATIN 170 MG in D5W 50 ML IV(CANCER CTR) 50 ML IV SCH; +FAMOTIDINE 20MG/2ML IV (CANCER CTR) IV SCH; +NS IV 1000 ML (CANCER CTR) IV SCH; +NS IV SCH; +PACLITAXEL 110 MG in NS (IVPB) CANCER CENTER 250 ML IV SCH; +PACLITAXEL IV SCH; +PALONOSETRON HCL 0.25 MG, DEXAMETHASONE INJECTION 10 MG in NS (IVPB) CANCER CENTER 50 ML IV SCH; +diphenhydrAMINE 25 MG TAB (BENADRYL) CANCER CENTER PO SCH; +diphenhydrAMINE 50 MG/ML INJ (CANCER CENTER) IV PRN; +morphine INJ 4 MG/ML 1 ML (CANCER CTR) IV PRN
[2018-09-05 10:32] LABS: BASOPHILS % (AUTO) 0 % (0-10); EOSINOPHILS % (AUTO) 0 % (0-10); HEMATOCRIT 34 % (35-52); HEMOGLOBIN 11.3 G/DL (11.5-16.0); LYMPHOCYTES # (AUTO) 1.3 X 10^3 (1.0-4.0); LYMPHOCYTES % (AUTO) 9 % (12-44); MEAN CORPUSCULAR HEMOGLOBIN 30 PG (25-34); MEAN CORPUSCULAR HGB CONC 33 G/DL (32-36); MEAN CORPUSCULAR VOLUME 90 FL (80-99); MEAN PLATELET VOLUME 9.1 FL (7.4-10.4); MONOCYTES # (AUTO) 0.8 X 10^3 (0.0-1.0); MONOCYTES % (AUTO) 6 % (0-12); NEUTROPHILS # (AUTO) 11.6 X 10^3 (1.8-7.8); NEUTROPHILS % (AUTO) 85 % (42-75); PLATELET COUNT 262 10^3/uL (130-400); RED BLOOD COUNT 3.81 10^6/uL (4.35-5.85); RED CELL DISTRIBUTION WIDTH 14.3 % (10.0-14.5); WHITE BLOOD COUNT 13.7 10^3/uL (4.3-11.0)
[2018-09-05 10:47] LABS: BUN/CREATININE RATIO 11; CALCIUM 9.3 MG/DL (8.5-10.1); CARBON DIOXIDE 21 MMOL/L (21-32); CHLORIDE 93 MMOL/L (98-107); CREATININE SERUM 0.76 MG/DL (0.60-1.30); GFR ESTIMATED > 60; GLUCOSE 107 MG/DL (70-105); MAGNESIUM 1.6 MG/DL (1.8-2.4); POTASSIUM 4.4 MMOL/L (3.6-5.0); SODIUM 127 MMOL/L (135-145)
[2018-09-11] MEDS ORDERED: ALPR0.5T PO (09:32)
[2018-09-11] MEDS ORDERED: FENT1PAT60 TD (09:43)
[2018-09-11] MEDS ORDERED: SENN-75 PO (09:53)
[2018-09-11] MEDS ORDERED: DEXA4TAB PO (09:53)
[2018-09-11] MEDS ORDERED: HYDR4TAB49 PO (09:53)
[2018-09-12] MEDS ORDERED: ONDA8TAB6 PO (13:38)
[2018-09-12] MEDS ORDERED: PANT40TA2 PO (13:38)
[2018-09-12] MEDS ORDERED: ALPR0.5T PO (13:38)
[2018-09-12] MEDS ORDERED: FENT1PAT11 TD (13:38)
[2018-09-12] MEDS ORDERED: POLY17PO6 PO (13:38)
== END 2018-09-15 | disposition home or self-care (01) ==
LOC: ONC 09:52
PROVIDERS: ATTEND Internal Medicine Hematology & Oncology
DX: Z51.11 Encounter for antineoplastic chemotherapy (principal); C34.11 Malignant neoplasm of upper lobe, right bronchus or lung; C79.71 Secondary malignant neoplasm of right adrenal gland; C79.72 Secondary malignant neoplasm of left adrenal gland; C78.7 Secondary malignant neoplasm of liver and intrahepatic bile duct; R59.0 Localized enlarged lymph nodes; E87.1 Hypo-osmolality and hyponatremia; J44.9 Chronic obstructive pulmonary disease, unspecified; I10 Essential (primary) hypertension; F32.9 Major depressive disorder, single episode, unspecified; D64.81 Anemia due to antineoplastic chemotherapy; K44.9 Diaphragmatic hernia without obstruction or gangrene; F17.210 Nicotine dependence, cigarettes, uncomplicated; Z87.11 Personal history of peptic ulcer disease; Z79.899 Other long term (current) drug therapy
CPT/HCPCS: 36415; 36591; 36593; 80048; 80053; 81000; 83615; 83735; 85025; 96374; 96375; 96376; 96413; 96417; 99214

== ENCOUNTER 2018-09-10 19:22 | Inpatient (IN) | payer OTHER ==
[~2018-09-10] VITALS: Ht 157.5 cm; Wt 44.9 kg
[~2018-09-10 19:22] MED LIST changes: -ALTEPLASE 2 MG (CATHFLO) CANCER CENTER IV ONE; -CARBOPLATIN 170 MG in D5W 50 ML IV(CANCER CTR) 50 ML IV SCH; -FAMOTIDINE 20MG/2ML IV (CANCER CTR) IV SCH; -NS IV 1000 ML (CANCER CTR) IV SCH; -NS IV SCH; -PACLITAXEL 110 MG in NS (IVPB) CANCER CENTER 250 ML IV SCH; -PACLITAXEL IV SCH; -PALONOSETRON HCL 0.25 MG, DEXAMETHASONE INJECTION 10 MG in NS (IVPB) CANCER CENTER 50 ML IV SCH; -diphenhydrAMINE 25 MG TAB (BENADRYL) CANCER CENTER PO SCH; -diphenhydrAMINE 50 MG/ML INJ (CANCER CENTER) IV PRN; -morphine INJ 4 MG/ML 1 ML (CANCER CTR) IV PRN
[2018-09-10] MEDS ORDERED: LACTATED RINGERS 1,000 ML IV ONE (19:29)
[2018-09-10] MEDS ORDERED: ONDANSETRON 4 MG/2 ML (SDV) Z0FRAN IVP ONE (19:30)
[2018-09-10] MEDS ORDERED: PANTOPRAZOLE 40 MG (PROTONIX) VIAL IV ONE (19:30)
--- NOTE | 2018-09-10 20:07 | ED General ---
General Chief Complaint: General Problems/Pain Stated Complaint: WEAKNESS Source of Information: Family (DAUGHTER DOES MOST OF TALKING FOR PT) History of Present Illness Date Seen by Provider: Sep 10, 2018 Time Seen by Provider: 19:24 Initial Comments PT ARRIVES VIA POV WITH DAUGHTER--NEEDS FULL ASSIST OUT OF VEHICLE AND INTO WHEELCHAIR PT WAS DIAGNOSED WITH LUNG AND ADRENAL CANCER 07/15/18 PT IS CURRENTLY RECEIVING CHEMO--HAD 4 WEEKS / FIRST ROUND, AND STARTED SECOND ROUND OF 4 WEEKS ON WEDNESDAY. PT HAS NOT BEEN URINATING WELL FOR SEVERAL DAYS, BUT DID GO JUST PRIOR TO ARRIVAL PT HAS NOT HAD ANYTHING TO EAT OR DRINK FOR A COUPLE OF DAYS C/O NAUSEA, NO VOMITING AND NO DIARRHEA HAS ZOFRAN AND PROTONIX BUT HAS NOT HAD EITHER TODAY. C/O GENERALIZED WEAKNESS AND DROWSINESS--SLEEPING ALL THE TIME, CAN'T STAY AWAKE --SINCE YESTERDAY "CAN'T GET CONTROL OF THE PAIN" --HAS PAIN TO RIGHT FLANK, LOWER BACK AND LUQ. IS CURRENTLY ON FENTANYL PATCH 100 MCG--NEW ONE PLACED YESTERDAY. ADDITIONALLY, PT IS ON DILAUDID --HAD DOSE AT 0900 AND 1500 PT IS ALSO ON XANAX FOR ANXIETY--HAS TAKEN TWICE TODAY HAS HAD SUBJECTIVE FEVER AND CHILLS HAS HAD MILD COUGH, SMALL AMOUNT OF SPUTUM NO CHEST PAIN OR SHORTNESS OF BREATH NO CONFUSION NO HEADACHE PCP: DR. VELASQUEZ ONCOLOGY: DR. FALK. Allergies and Home Medications Allergies Coded Allergies: NSAIDS (Non-Steroidal Anti-Inflamma (Verified Allergy, Mild, HIVES, ) Home Medications Alprazolam 0.5 Mg Tablet, 0.5 MG PO TID PRN for ANXIETY, (Reported) Estradiol 1 Mg Tablet, 1 MG PO DAILY, (Reported) Fentanyl 1 Each Patch.td72, 100 MCG TD Q72H, (Reported) Hydromorphone HCl 4 Mg Tablet, 4 MG PO EVERY 3-4 HOURS PRN for PAIN-BREAKTHROUGH , (Reported) Lisinopril 10 Mg Tablet, 10 MG PO DAILY, (Reported) Ondansetron HCl 8 Mg Tablet, 8 MG PO TID PRN for NAUSEA/VOMITING-1ST LINE, ( Reported) Pantoprazole Sodium 40 Mg Tablet.dr, 40 MG PO DAILY, (Reported) Paroxetine HCl 10 Mg Tablet, 10 MG PO DAILY, (Reported) Polyethylene Glycol 3350 17 Gm Powd.pack, 17 GM PO DAILY, (Reported) Patient Home Medication List Home Medication List Reviewed: Yes Review of Systems Review of Systems Constitutional: see HPI, chills, fever, malaise, weakness EENTM: no symptoms reported Respiratory: see HPI, cough; No short of breath Cardiovascular: no symptoms reported; No chest pain, No edema, No palpitations , No syncope, No vascular heart diseas Gastrointestinal: see HPI, abdominal pain, loss of appetite, nausea, vomiting Genitourinary: see HPI, decreased output Musculoskeletal: see HPI, back pain Skin: no symptoms reported Psychiatric/Neurological: No Symptoms Reported; Denies Headache, Denies Numbness, Denies Paresthesia, Denies Seizure, Denies Tingling, Denies Weakness Hematologic/Lymphatic: See HPI Immunological/Allergic: see HPI Past Ifnkydi-Bspxjx-Bbmtpk Hx Patient Social History Alcohol Beverage of Choice: Vodka Type Used: Cigarettes Recent Foreign Travel: No Contact w/Someone Who Travel: No Recent Hopitalizations: No Immunizations Up To Date Tetanus Booster (TDap): Unknown Seasonal Allergies Seasonal Allergies: Yes Past Medical History Surgeries: Yes (right oophorectomy with salpingectomy) Appendectomy, Oophorectomy, Tonsillectomy, Tubal Ligation Respiratory: Yes (LUNG CA) Chronic Bronchitis Currently Using CPAP: No Cardiac: Yes Hypertension Neurological: No Reproductive Disorders: No MEDIA PRODUCER History: 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 CURRENTLY ON CHEMO OF 10/28) Lung Did You Recieve Any Treatments: Yes What Type of Treatment Did You: Chemotherapy Psychosocial: Yes Anxiety, Depression Integumentary: No Blood Disorders: No Adverse Reaction/Blood Tranf: No (N/A) Family Medical History No Pertinent Family Hx Physical Exam Vital Signs Vital Signs - First Documented 09/15/18 09/15/18 06:00 08:00 Resp 8 O2 Delivery Nasal Cannula Capillary Refill : Height, Weight, BMI Height: 5'2.00" Weight: 110lbs. 6.0oz. 50.791973tz; 20.2 BMI Method:Stated General Appearance: Chronically ill, Cachetic, Thin, Other (MOANS WITH ANY MOVEMENT. LETHARGIC, NEEDS FULL ASSIST FOR EVERYTHING. KEEPS EYES CLOSED, LETHARGIC. ) HEENT: PERRL/EOMI Neck: Normal Inspection Respiratory: Normal Breath Sounds, No Accessory Muscle Use, No Respiratory Distress Cardiovascular: No JVD, No Murmur, Normal Peripheral Pulses, Tachycardia (130' S ON ARRIVAL) Gastrointestinal: Soft Extremity: No Calf Tenderness, No Pedal Edema Neurologic/Psychiatric: Alert, Oriented x3, No Motor/Sensory Deficits, supervisor diagnostic II- XII Norm as Tested Skin: Warm/Dry, Pallor, Other (SALLOW) Progress/Results/Core Measures Suspected Sepsis SIRS Temperature: Pulse: Respiratory Rate: Blood Pressure / Mean: Results/Orders My Orders Medications Given in ED Vital Signs/I&O Capillary Refill : Progress Note : Progress Note SYMPTOMS IMPROVED AT TIME OF ADMIT, BUT STILL WITH SOME PAIN ECG Initial ECG Impression Date: Sep 10, 2018 Initial ECG Impression Time: 21:06 Initial ECG Rate: 111 Initial ECG Rhythm: S.Tach Initial ECG Impression: Nonspecific Changes Initial ECG Comparisson: No Previous ECG Available Diagnostic Imaging Comments CXR--WORSENING OPACITY AND MASS EFFECT, RUL--PER RADIOLOGIST REPORT @ 2050 Reviewed: Reviewed by Me Departure Communication (Admissions) 2129--SPOKE WITH DR. ELDRIDGE, ONCOLOGIST BRUSH MACHINE SETTER, ORDERS NOTED FOR PREASSEMBLER PRINTED CIRCUIT BOARD PUMP AND ADVISES TO ADMIT TO HOSPITALIST. 2157--SPOKE WITH DR. MURDOCK, HOSPITALIST, HE ADVISES THAT THIS NEEDS TO BE ADMITTED TO ONCOLOGY, THIS IS ALL DIRECTLY RELATED TO CANCER, AND HE WILL SEE PT IN CONSULT. Impression Primary Impression: GENERALIZED PAIN Additional Impressions: Generalized weakness LUNG AND ADRENAL CANCER ON CHEMOTHERAPY Disposition: ADMITTED INPATIENT Condition: Stable Admissions Decision to Admit Reason: Admit from ER (General) Decision to Admit/Date: Sep 10, 2018 Time/Decision to Admit Time: 21:30 Departure-Patient Inst. Referrals: RACHELLE VELASQUEZ MD (PCP/Family) Primary Care Physician JOSE L MITCHELL DO Sep 10, 2018 20:07
[2018-09-10] MEDS ORDERED: fentaNYL INJECTION 100 MCG/2 ML AMP IVP STA ×2 (20:25→21:09)
--- NOTE | 2018-09-10 20:38 | Diagnostic Imaging Report ---
INDICATION: History of lung cancer, weakness. EXAMINATION: Frontal chest was obtained at 8:11 p.m. COMPARISON: 08/14/2018. FINDINGS: There is worsening opacity and/or mass effect in the right superior mediastinum and right upper lobe when compared with 08/14/2018. Heart is normal in size. Port-A-Cath is unchanged. The left lung shows no focal infiltrate, pneumothorax or pleural fluid. There are prominent emphysematous changes in the left apex. IMPRESSION: Worsening opacity and mass effect in the right superior mediastinum and right upper lobe when compared with 08/14/2018. Emphysematous changes. No other new abnormality is seen. Dictated by: Dictated on workstation # [id number]
[2018-09-10 20:54] LABS: BASOPHILS % (AUTO) 0 % (0-10); EOSINOPHILS % (AUTO) 0 % (0-10); HEMATOCRIT 32 % (35-52); HEMOGLOBIN 10.7 G/DL (11.5-16.0); LYMPHOCYTES # (AUTO) 0.6 X 10^3 (1.0-4.0); LYMPHOCYTES % (AUTO) 11 % (12-44); MEAN CORPUSCULAR HEMOGLOBIN 30 PG (25-34); MEAN CORPUSCULAR HGB CONC 34 G/DL (32-36); MEAN CORPUSCULAR VOLUME 88 FL (80-99); MEAN PLATELET VOLUME 9.8 FL (7.4-10.4); MONOCYTES # (AUTO) 0.3 X 10^3 (0.0-1.0); MONOCYTES % (AUTO) 6 % (0-12); NEUTROPHILS # (AUTO) 4.6 X 10^3 (1.8-7.8); NEUTROPHILS % (AUTO) 82 % (42-75); PLATELET COUNT 176 10^3/uL (130-400); RED BLOOD COUNT 3.61 10^6/uL (4.35-5.85); RED CELL DISTRIBUTION WIDTH 14.7 % (10.0-14.5); WHITE BLOOD COUNT 5.6 10^3/uL (4.3-11.0)
[2018-09-10 21:02] LABS: BILIRUBIN,URINE NEGATIVE (NEGATIVE); CLARITY,URINE SLIGHTLY CLOUDY; COLOR,URINE YELLOW; GLUCOSE, URINE (UA) NEGATIVE (NEGATIVE); KETONES,URINE 3+ (NEGATIVE); LEUKOCYTE ESTERASE ,URINE 1+ (NEGATIVE); NITRITE,URINE NEGATIVE (NEGATIVE); PH,URINE 5 (5-9); PROTEIN,URINE 2+ (NEGATIVE); UROBILINOGEN,URINE 1 MG/DL (NORMAL)
[2018-09-10 21:06] LABS: INR 1.2 (0.8-1.4); PROTHROMBIN TIME PATIENT 14.7 SEC (12.2-14.7)
[2018-09-10 21:12] LABS: ALANINE AMINOTRANSFERASE 20 U/L (0-55); ALBUMIN 3.1 GM/DL (3.2-4.5); ALKALINE PHOSPHATASE 139 U/L (40-136); AMYLASE 41 U/L (25-125); BILIRUBIN,TOTAL 0.8 MG/DL (0.1-1.0); BUN/CREATININE RATIO 18; CARBON DIOXIDE 20 MMOL/L (21-32); CHLORIDE 90 MMOL/L (98-107); GFR ESTIMATED > 60; GLUCOSE 74 MG/DL (70-105); LIPASE 5 U/L (8-78); MAGNESIUM 1.5 MG/DL (1.8-2.4); TOTAL PROTEIN 5.3 GM/DL (6.4-8.2)
[2018-09-10 21:12] LABS: AMORPHOUS SEDIMENT,UR MOD AMOR URATES /LPF; BACTERIA,URINE TRACE /HPF; RBC,URINE RARE /HPF; WBC,URINE RARE /HPF
[2018-09-10 21:20] LABS: SODIUM 123 MMOL/L (135-145)
[2018-09-10 21:31] LABS: TSH (THYROID ANALYZER) 1.81 UIU/ML (0.35-4.94)
[2018-09-10] MEDS ORDERED: NS IV 1000 ML 1,000 ML IV ONE ×2 (22:16→23:12)
[2018-09-10] MEDS ORDERED: HYDROmorphone 2 MG/ML VIAL (DILAUDID) IV STA (22:16)
[2018-09-11] VITALS: BP 111/74
[2018-09-11] MEDS ORDERED: D5 NS 1000 ML IV SOLUTION 1,000 ML IV ONE (01:14)
[2018-09-11] MEDS ORDERED: morphine PCA 30 MG/30 ML VIAL IV ONE (01:22)
[2018-09-11] MEDS ORDERED: morphine PCA 100 MG/100 ML BAG IV PRN (01:45)
[2018-09-11] MEDS ORDERED: ONDANSETRON 4 MG/2 ML (SDV) Z0FRAN IV PRN (01:45)
[2018-09-11] MEDS ORDERED: diphenhydrAMINE 50 MG/ML INJ (BENADRYL) IV PRN (01:45)
[2018-09-11] MEDS ORDERED: NS IV 500 ML PCA CARRIER FLUID IV SCH (01:45)
[2018-09-11] MEDS ORDERED: METOCLOPRAMIDE INJ 10 MG/2 ML (REGLAN) IV PRN (01:45)
[2018-09-11] MEDS ORDERED: NALOXONE 0.4 MG/ML 1 ML (NARCAN) VIAL IV PRN (01:45)
[2018-09-11] MEDS: D5 NS 1000 ML IV SOLUTION 1,000 ML IV SCH ×2 (01:52→08:44)
[2018-09-11] MEDS ORDERED: morphine PCA 30 MG/30 ML VIAL IV PRN (02:00)
[2018-09-11 06:56] LABS: BASOPHILS % (AUTO) 0 % (0-10); EOSINOPHILS % (AUTO) 1 % (0-10); HEMATOCRIT 28 % (35-52); HEMOGLOBIN 9.4 G/DL (11.5-16.0); LYMPHOCYTES # (AUTO) 0.5 X 10^3 (1.0-4.0); LYMPHOCYTES % (AUTO) 13 % (12-44); MEAN CORPUSCULAR HEMOGLOBIN 30 PG (25-34); MEAN CORPUSCULAR HGB CONC 33 G/DL (32-36); MEAN CORPUSCULAR VOLUME 90 FL (80-99); MEAN PLATELET VOLUME 9.9 FL (7.4-10.4); MONOCYTES # (AUTO) 0.3 X 10^3 (0.0-1.0); MONOCYTES % (AUTO) 7 % (0-12); NEUTROPHILS # (AUTO) 3.3 X 10^3 (1.8-7.8); NEUTROPHILS % (AUTO) 79 % (42-75); PLATELET COUNT 161 10^3/uL (130-400); RED BLOOD COUNT 3.14 10^6/uL (4.35-5.85); RED CELL DISTRIBUTION WIDTH 14.9 % (10.0-14.5); WHITE BLOOD COUNT 4.2 10^3/uL (4.3-11.0)
[2018-09-11 07:23] LABS: ALANINE AMINOTRANSFERASE 19 U/L (0-55); ALBUMIN 2.7 GM/DL (3.2-4.5); ALKALINE PHOSPHATASE 131 U/L (40-136); BILIRUBIN,TOTAL 0.5 MG/DL (0.1-1.0); BUN/CREATININE RATIO 12; CALCIUM 8.2 MG/DL (8.5-10.1); CARBON DIOXIDE 21 MMOL/L (21-32); CHLORIDE 96 MMOL/L (98-107); CREATININE SERUM 0.58 MG/DL (0.60-1.30); GFR ESTIMATED > 60; GLUCOSE 113 MG/DL (70-105); POTASSIUM 4.2 MMOL/L (3.6-5.0); SODIUM 126 MMOL/L (135-145); TOTAL PROTEIN 4.8 GM/DL (6.4-8.2)
[2018-09-11 08:00] VITALS: BP 99/58
[2018-09-11] MEDS ORDERED: FLU QUADRIvalent (5+ YOA) 2018-2019 (AFLURIA) 0.5 ML IM ONE (09:00)
[2018-09-11] MEDS ORDERED: ALPR0.5T PO (09:32)
[2018-09-11] MEDS ORDERED: FENT1PAT60 TD (09:43)
[2018-09-11] MEDS ORDERED: SENN-75 PO (09:53)
[2018-09-11] MEDS ORDERED: HYDR4TAB49 PO (09:53)
[2018-09-11] MEDS ORDERED: DEXA4TAB PO (09:53)
[2018-09-11 10:07] VITALS: BP 100/62
[2018-09-11] MEDS: SENNA W/DOCUSATE (SENOKOT S) TABLET PO SCH (10:37)
--- NOTE | 2018-09-11 11:31 | Oncology Consultation ---
Visit Information Visit Information Date of Admission Sep 10, 2018 at 21:30 Attending Physician Masoud Green MD Admitting Physician Masoud Green MD Chief Complaint nausea vomiting and weakness on chemo for lung cancer Interval History Ms. 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 She was on Carbo+Taxol cycle #2 given on 08-29-2018. Her daughter brought her to ER and complaining of nausea vomiting general weakness. She has not be able to eat for 3 days. She is also in pain of her back and chest wall which was not controlled by Fentanyl patch 100mcg and Dilaudid PRN. She did not tolerate Hydrocodone well at the beginning. She was also very weak and could barely get out of the car. I consulted the patient on: 09/11/18 11:26 Time Seen by Provider: 11:46 Review of Systems Constitutional: malaise, weakness EENTM: see HPI Respiratory: cough, dyspnea on exertion, short of breath Cardiovascular: chest pain Gastrointestinal: constipation, nausea, vomiting Genitourinary: see HPI Musculoskeletal: muscle pain Psychiatric/Neurological: Tremors, Weakness Health Status Allergies Coded Allergies: NSAIDS (Non-Steroidal Anti-Inflamma (Verified Allergy, Mild, HIVES, ) Home Medications Alprazolam (Xanax) 0.5 Mg Tablet, 0.5 MG PO q4-6hr PRN for ANXIETY, #14 Ref 0 Prescribed by: JOSE KAY on 09/11/18 0932 Dexamethasone (Dexamethasone) 4 Mg Tablet, 4 MG PO DAILY, (Reported) Estradiol (Estradiol Tablet) 1 Mg Tablet, 1 MG PO DAILY, (Reported) Fentanyl (Duragesic Patch 100MCG) 1 Each Patch.td72, 100 MCG TD Q72H, #1 Prescribed by: JOSE KAY on 09/11/18 0943 Hydromorphone HCl (Dilaudid) 4 Mg Tablet, 4 MG PO q3-4hrs PRN for BREAKTHROUGH PAIN, (Reported) Lisinopril (Lisinopril) 10 Mg Tablet, 10 MG PO DAILY, (Reported) Ondansetron (Zofran Odt) 8 Mg Tab.rapdis, 8 MG PO Q8H, #12 Prescribed by: JHON RICHARDSON on 07/31/18 1333 Paroxetine HCl (Paroxetine HCl) 10 Mg Tablet, 10 MG PO DAILY, (Reported) Sennosides/Docusate Sodium (Stool Softener Tablet) 1 Each Tablet, 1 EACH PO, ( Reported) FPE-Qubvdo-Bycsob Hx Patient Social History Alcohol Use: Denies Use Recreational Drug Use: No Smoking Status: Current Everyday Smoker Type Used: Cigarettes 2nd Hand Smoke Exposure: Yes Recent Foreign Travel: No Contact w/other who traveled: No Recent Infectious Disease Expo: No Recent Hopitalizations: No Physical Abuse Screen: No Sexual Abuse: No Immunizations Up To Date Tetanus Booster (TDap): Unknown Family Medical History Significant Family History: No Pertinent Family Hx Physical Exam Vital Signs Vital Signs - First Documented 09/10/18 19:22 Temp 97.6 Pulse 129 Resp 20 B/P (MAP) 131/85 (100) Pulse Ox 93 O2 Delivery Nasal Cannula O2 Flow Rate 2.00 Capillary Refill : Less Than 3 Seconds Height, Weight, BMI Height: 5'2.00" Weight: 99lbs. 0.8oz. 44.192960im; 18.1 BMI Method:Stated General Appearance: Chronically ill, Thin HEENT: PERRL/EOMI Neck: Non Tender, Supple Respiratory: No Accessory Muscle Use, No Respiratory Distress, Crackles, Rhonci Cardiovascular: Regular Rate, Rhythm, No JVD Gastrointestinal: Non Tender, Soft Extremity: No Calf Tenderness, No Pedal Edema Neurologic/Psychiatric: Alert, Oriented x3 Data Review Labs Laboratory Tests 09/10/18 20:36 09/11/18 06:25 Laboratory Tests 09/10/18 20:36: Red Blood Count 3.61L, Hemoglobin 10.7L, Hematocrit 32L, Red Cell Distribution Width 14.7H, Neutrophils (%) (Auto) 82H, Lymphocytes (%) (Auto) 11L, Lymphocytes # (Auto) 0.6L, Sodium Level 123*L, Chloride Level 90L, Carbon Dioxide Level 20L, Magnesium Level 1.5L, Aspartate Amino Transf (AST/SGOT) 35H, Alkaline Phosphatase 139H, Total Protein 5.3L, Albumin 3.1L, Lipase 5L 09/10/18 20:52: Urine Protein 2+H, Urine Ketones 3+H, Urine Leukocyte Esterase 1+H, Urine RBC ( Auto) 1+H, Urine Crystals PRESENTH, Urine Amorphous Sediment MOD PILY URATESH 09/11/18 06:25: Red Blood Count 3.14L, Hemoglobin 9.4L, Hematocrit 28L, Red Cell Distribution Width 14.9H, Neutrophils (%) (Auto) 79H, Lymphocytes # (Auto) 0.5L, Sodium Level 126L, Chloride Level 96L, Aspartate Amino Transf (AST/SGOT) 35H, Total Protein 4.8L, Albumin 2.7L, White Blood Count 4.2L, Creatinine 0.58L, Glucose Level 113H, Calcium Level 8.2L Impression & Plan Impression & Plan IMP: 1. Poorly differentiated high-grade right upper lobe lung cancer with hilar and mediastinal lymphadenopathy as well as bilateral adrenal metastasis on palliative chemo Carbo+taxol cycle #2 given on 08/29/2018. 2. Nausea vomiting and dehydration as well as generalized weakness associated to #1 and toxicity of chemo treatment. 3. Right lower back/flank pain. Not controlled by fentanyl 100 g per hour patch every 72 hours and Dilaudid 4 mg every 4 hours 4. Hyponatremia, most likely due to the lung pathology. 5. Anemia most likely due to chemo. 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 Morphine started at ER and works well for her pain. I would not change it. 2. IVF hydration 3. Antiemetics IV with Decadron 4. Hold off chemo for now. JENI ELDRIDGE MD Sep 11, 2018 11:31
[2018-09-11 12:00] VITALS: BP 134/82
[2018-09-11] MEDS: NS IV 1000 ML 1,000 ML IV SCH ×2 (12:15→22:18)
[2018-09-11] MEDS: morphine PCA 100 MG/100 ML BAG IV PRN (12:33)
[2018-09-11] MEDS: ONDANSETRON 4 MG/2 ML (SDV) Z0FRAN IVP SCH (13:11)
[2018-09-11] MEDS: DEXAMETHASONE 4 MG/ML SDV (DECADRON) IV SCH (13:11)
[2018-09-11 15:38] VITALS: BP 100/57
[2018-09-11 20:07] VITALS: BP 92/56
[2018-09-12] VITALS: BP 113/59
[2018-09-12] MEDS: DEXAMETHASONE 4 MG/ML SDV (DECADRON) IV SCH ×2 (00:20→11:59)
[2018-09-12] MEDS: ONDANSETRON 4 MG/2 ML (SDV) Z0FRAN IVP SCH ×2 (00:20→09:48)
[2018-09-12 03:42] VITALS: BP 105/74
[2018-09-12 07:30] VITALS: BP 112/56
[2018-09-12] MEDS: NS IV 1000 ML 1,000 ML IV SCH ×2 (08:26→15:56)
[2018-09-12] MEDS ORDERED: PANTOPRAZOLE 40 MG (PROTONIX) VIAL IV SCH (09:00)
[2018-09-12 11:00] VITALS: BP 102/68
[2018-09-12] MEDS: SENNA W/DOCUSATE (SENOKOT S) TABLET PO SCH (11:53)
[2018-09-12] MEDS ORDERED: ONDA8TAB6 PO (13:38)
[2018-09-12] MEDS ORDERED: ALPR0.5T PO (13:38)
[2018-09-12] MEDS ORDERED: POLY17PO6 PO (13:38)
[2018-09-12] MEDS ORDERED: FENT1PAT11 TD (13:38)
[2018-09-12] MEDS ORDERED: PANT40TA2 PO (13:38)
[2018-09-12] MEDS ORDERED: NON-FORMULARY MEDICATION 1 EA EA (Ondansetron HCl (Zofran) 8 MG) PO PRN (14:00)
[2018-09-12] MEDS ORDERED: ONDANSETRON 8 MG (ZOFRAN) ORAL DISSOLVE TAB PO PRN (14:30)
[2018-09-12] MEDS: fentaNYL PATCH 100 MCG (DURAGESIC) TD SCH (15:45)
--- NOTE | 2018-09-12 15:46 | Consultation-Hospitalist ---
HPI History of Present Illness: HPI/Chief Complaint Pt is a 58yoCF with a PMH of metastatic cancer and chronic pain who was admitted for intractable back pain which is currenlty being managed by Dr Leonard. I am consulted for medical management of her chronic illness. She has a history of HTN but blood pressure has been well controlled. She otherwise has no complaints at this time. She is requesting to have her telemetry discontinued though. 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 Source: patient Date Seen 09/12/18 Attending Physician Robbin Leonard MD PCP Masoud Green MD Referring Physician Date of Admission Sep 10, 2018 at 21:30 Home Medications & Allergies Home Medications Reviewed patient Home Medication Reconciliation performed by pharmacy medication reconciliations implementation technician and/or nursing. Patients Allergies have been reviewed. Allergies Allergies Coded Allergies NSAIDS (Non-Steroidal Anti-Inflamma (Verified Allergy, Mild, HIVES, 07/21/18) Past Rgqevrg-Hpkerj-Azvhme Hx Past Med/Social Hx: Reviewed Nursing Past Med/Soc Hx Patient Social History Alcohol Use: Denies Use Number of Drinks Today: FF Alcohol Beverage of Choice: Vodka Recreational Drug Use: No Smoking Status: Current Everyday Smoker Type Used: Cigarettes 2nd Hand Smoke Exposure: Yes Physical Abuse Screen: No Sexual Abuse: No Recent Foreign Travel: No Contact w/other who traveled: No Recent Hopitalizations: No Recent Infectious Disease Expo: No Immunizations Up To Date Tetanus Booster (TDap): Unknown Seasonal Allergies Seasonal Allergies: No Past Medical History Surgeries: Appendectomy, Oophorectomy, Tonsillectomy, Tubal Ligation Respiratory: COPD Currently Using CPAP: No Currently Using BIPAP: No Cardiac: Hypertension Reproductive: No Sexually Transmitted Disease: No HIV/AIDS: No Menopausal Gastrointestinal: Hiatal Hernia Endocrine: Adrenal Disease Cancer: Lung Did You Recieve Any Treatments: Yes What Type of Treatment Did You: Chemotherapy Psychosocial: Anxiety, Depression History of Blood Disorders: No Adverse Reaction to Blood Stahl: No Family History Reviewed Nursing Family Hx No Pertinent Family Hx Review of Systems Constitutional: no symptoms reported EENTM: no symptoms reported Respiratory: no symptoms reported Cardiovascular: no symptoms reported Gastrointestinal: no symptoms reported Musculoskeletal: back pain Skin: no symptoms reported Psychiatric/Neurological: No Symptoms Reported Physical Exam Physical Exam Vital Signs Vital Signs - First Documented 09/10/18 19:22 Temp 97.6 Pulse 129 Resp 20 B/P (MAP) 131/85 (100) Pulse Ox 93 O2 Delivery Nasal Cannula O2 Flow Rate 2.00 Capillary Refill : Less Than 3 Seconds Height, Weight, BMI Height: 5'2.00" Weight: 99lbs. 0.8oz. 44.599684cj; 18.1 BMI Method:Stated General Appearance: No Apparent Distress, Chronically ill, Cachetic HEENT: PERRL/EOMI, Moist Mucous Membranes; No Scleral Icterus (L), No Scleral Icterus (R) Neck: Non Tender, Supple Respiratory: Lungs Clear, No Respiratory Distress Cardiovascular: Regular Rate, Rhythm, No Murmur Gastrointestinal: Normal Bowel Sounds, Non Tender, Soft Extremity: Normal Inspection, No Calf Tenderness Neurologic/Psychiatric: Alert, Oriented x3, Normal Mood/Affect Skin: Normal Color, Warm/Dry Results Results/Procedures Labs Laboratory Tests 09/10/18 20:36 09/11/18 06:25 Patient resulted labs reviewed. Assessment/Plan Assessment and Plan Assess & Plan/Chief Complaint HTN- BP well controlled on no meds- trend INtractable Pain- Management per Oncology Metastatic cancer- currently chemo being held Hyponatremia- resolving- consider fluid restriction if not improved with resolution of diarrhea PPX: Add lovenox as is high risk for DVT Clinical Quality Measures DVT/VTE Risk/Contraindication: Risk Factor Score Per Nursin RFS Level Per Nursing on Admit: 4+=Very High ARABELLA BUI MD Sep 12, 2018 15:46
[2018-09-12] MEDS ORDERED: FENTANYL 100 MCG PATCH REMOVAL TP SCH (15:59)
[2018-09-12 16:00] VITALS: BP 112/65
[2018-09-12] MEDS ORDERED: diphenhydrAMINE 25 MG TAB (BENADRYL) PO PRN (16:00)
[2018-09-12] MEDS ORDERED: ENOXAPARIN 40 MG/0.4 ML (LOVENOX) SYR SQ SCH (16:00)
[2018-09-12] MEDS: ENOXAPARIN 30 MG/0.3 ML (LOVENOX) SYR SC SCH (16:30)
--- NOTE | 2018-09-12 18:05 | Progress Note-Standard ---
Standard Progress Note Progress Notes/Assess & Plan Date Seen by a Provider: Sep 12, 2018 Time Seen by a Provider: 18:00 Progress/Assessment & Plan 58-year-old female admitted to the hospital with uncontrolled back pain and increasing sleepiness. 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 She is on palliative chemotherapy with the weekly carboplatin and paclitaxel regimen and is undergoing the second month of treatment. She has history of anxiety with panic attacks and is on SSRI agent. Admission lab work showed hyponatremia which is slightly better today. She is on morphine R D INTERNSHIP with control of pain. She was on fentanyl 100 g per hour patch previously which is continuing. Admission portable chest x-ray showed slight increase in the size of right upper lobe nodules. I will obtain CT scan of the chest and abdomen to objectively evaluate this. If she has evidence of progressive disease, we may have to change current treatment regimen. Continue rest of the medications for now. Increase oral intake and activity while gradually weaning some of her medications. We will recheck CBC, BMP and magnesium level in a.m. Focused Exam Lactate Level 09/10/18 20:36: Lactic Acid Level 1.73 KINDRA FALK Sep 12, 2018 18:05
[2018-09-12 20:00] VITALS: BP 112/85
[2018-09-12] MEDS: morphine PCA 100 MG/100 ML BAG IV PRN (20:55)
[2018-09-13 00:01] VITALS: BP 122/61
[2018-09-13] MEDS: DEXAMETHASONE 4 MG/ML SDV (DECADRON) IV SCH (00:45)
[2018-09-13] MEDS: ONDANSETRON 4 MG/2 ML (SDV) Z0FRAN IVP SCH (00:46)
[2018-09-13 04:07] VITALS: BP 113/74
[2018-09-13] MEDS: NS IV 1000 ML 1,000 ML IV SCH ×2 (04:34→14:26)
[2018-09-13] MEDS: PANTOPRAZOLE 40 MG (PROTONIX) TAB PO SCH (05:36)
[2018-09-13 07:18] LABS: BASOPHILS % (AUTO) 0 % (0-10); EOSINOPHILS % (AUTO) 0 % (0-10); HEMATOCRIT 29 % (35-52); LYMPHOCYTES # (AUTO) 0.3 X 10^3 (1.0-4.0); LYMPHOCYTES % (AUTO) 6 % (12-44); MEAN CORPUSCULAR HEMOGLOBIN 30 PG (25-34); MEAN CORPUSCULAR HGB CONC 34 G/DL (32-36); MEAN CORPUSCULAR VOLUME 89 FL (80-99); MEAN PLATELET VOLUME 9.6 FL (7.4-10.4); MONOCYTES # (AUTO) 0.5 X 10^3 (0.0-1.0); MONOCYTES % (AUTO) 8 % (0-12); NEUTROPHILS # (AUTO) 5.2 X 10^3 (1.8-7.8); NEUTROPHILS % (AUTO) 86 % (42-75); PLATELET COUNT 185 10^3/uL (130-400); RED BLOOD COUNT 3.29 10^6/uL (4.35-5.85); RED CELL DISTRIBUTION WIDTH 15.3 % (10.0-14.5); WHITE BLOOD COUNT 6.1 10^3/uL (4.3-11.0)
[2018-09-13 07:42] LABS: BUN/CREATININE RATIO 10; CALCIUM 8.6 MG/DL (8.5-10.1); CARBON DIOXIDE 22 MMOL/L (21-32); CHLORIDE 101 MMOL/L (98-107); CREATININE SERUM 0.52 MG/DL (0.60-1.30); GFR ESTIMATED > 60; GLUCOSE 109 MG/DL (70-105); MAGNESIUM 1.5 MG/DL (1.8-2.4); POTASSIUM 4.5 MMOL/L (3.6-5.0); SODIUM 131 MMOL/L (135-145)
[2018-09-13 08:00] VITALS: BP 124/70
[2018-09-13 08:05] LABS: ANISOCYTOSIS SLIGHT; BAND NEUTROPHILS 13 %; LYMPHOCYTES % (MANUAL) 5 %; MONOCYTES % (MANUAL) 7 %; NEUTROPHILS % (MANUAL) 75 %
[2018-09-13] MEDS ORDERED: NON-FORMULARY MEDICATION 1 EA EA (Polyethylene Glycol 3350 (Miralax) 17 GM) PO SCH (09:00)
[2018-09-13] MEDS ORDERED: lisINopril 10 MG (PRINIVIL) TABLET PO SCH (09:00)
[2018-09-13] MEDS: PARoxetine 10 MG (PAXIL) TAB PO SCH (09:11)
[2018-09-13] MEDS: POLYETHYLENE GLYCOL 17 GM (MIRALAX) PACK PO SCH (09:11)
[2018-09-13] MEDS: ESTRADIOL 1 MG TAB (ESTRACE) PO SCH (09:11)
[2018-09-13] MEDS: SENNA W/DOCUSATE (SENOKOT S) TABLET PO SCH (09:12)
[2018-09-13] MEDS ORDERED: DEXAMETHASONE 4 MG/ML SDV (DECADRON) IV SCH (09:15)
[2018-09-13] MEDS ORDERED: ONDANSETRON 4 MG/2 ML (SDV) Z0FRAN IVP SCH (09:16)
[2018-09-13] MEDS: ALPRAZolam 0.5 MG (XANAX) TAB PO PRN ×2 (09:19→17:09)
[2018-09-13 12:00] VITALS: BP 123/72
[2018-09-13] MEDS: morphine PCA 100 MG/100 ML BAG IV PRN ×4 (13:42→19:59)
--- NOTE | 2018-09-13 14:29 | Progress Note-Standard ---
Standard Progress Note Progress Notes/Assess & Plan Date Seen by a Provider: Sep 13, 2018 Time Seen by a Provider: 14:24 Progress/Assessment & Plan 58-year-old female admitted to the hospital with uncontrolled back pain and increasing sleepiness. 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 She is on palliative chemotherapy with the weekly carboplatin and paclitaxel regimen and is undergoing the second month of treatment. Admission lab work showed hyponatremia which is better today. She is on morphine QA TESTER with 1 mg/h continuous infusion along with 1 mg bolus every 10 minutes as needed for breakthrough pain. She has used 32 mg during the last 12 hours shift and 26 mg during the previous 12 hour shift. She was on fentanyl 100 g per hour patch previously which is continuing. I will change the morphine QA TESTER to 2 mg/h continuous infusion with 1 mg bolus every 30 minutes as needed. Once the pain is under better control I will switch parenteral morphine to oral morphine. CT scan of the chest and abdomen to objectively evaluate lung and adrenal masses is pending. If she has evidence of progressive disease, we may have to change current treatment regimen. Lab work today revealed hypomagnesemia. I will start her on magnesium oxide 600 mg twice a day. Focused Exam Lactate Level 09/10/18 20:36: Lactic Acid Level 1.73 KINDRA FALK Sep 13, 2018 14:29
[2018-09-13 16:30] VITALS: BP 134/76
[2018-09-13] MEDS: MAGNESIUM OXIDE (MAG-OX)400 MG TAB PO SCH (17:09)
[2018-09-13] MEDS: ENOXAPARIN 30 MG/0.3 ML (LOVENOX) SYR SC SCH (17:09)
[2018-09-13] MEDS ORDERED: LORazepam INJ 2 MG/ML (ATIVAN) VIAL IVP NR (17:45)
[2018-09-13] MEDS ORDERED: DEXAMETHASONE 4 MG/ML SDV (DECADRON) IV NR (17:45)
[2018-09-13] MEDS ORDERED: DEXAMETHASONE 10 MG/ML (DECADRON) 1 ML VIAL ONE (17:55)
[2018-09-13] MEDS ORDERED: LORazepam INJ 2 MG/ML (ATIVAN) VIAL ONE (17:55)
[2018-09-13] MEDS ORDERED: IOHEXOL 350 MG/ML 100 ML (OMNIPAQUE 350) VIAL IV ONE (18:15)
[2018-09-13] MEDS ORDERED: NS 250 ML (IVPB) BAG IV ONE (18:15)
[2018-09-13] MEDS ORDERED: RECEIVED CONTRAST (Hold Metformin) IV SCH (18:15)
--- NOTE | 2018-09-13 19:52 | Diagnostic Imaging Report ---
PROCEDURE: CT chest with contrast, CT abdomen and pelvis with and without contrast. TECHNIQUE: Pre and post intravenous contrast axial imaging of the abdomen and pelvis and post contrast axial imaging of the chest were performed. INDICATION: Poorly differentiated lung carcinoma and adrenal metastases. Correlation is made with prior CT from 07/15/2018. CT chest: Large masses in the right upper lung which appear to be partially necrotic are again noted. The more medial and larger mass has increased in size measuring 8.2 cm AP by 6.8 cm transverse this compares with 6.9 x 6.7 cm. The second mass just lateral to this has also increased in size measuring 7.6 cm AP by 4.5 cm transverse compared with 5.2 cm x 3.3 cm. Pretracheal node previously seen measures 3.2 cm AP by 3.7 cm transverse compared with 2.4 cm x 2.9 cm. Right hilar mass appears to be fairly similar. Left hilum is unremarkable. No pericardial or pleural fluid is identified. Large bulla left upper lobe is seen. There has been development of several small nodules in the left upper and left lower lobes as well as right upper, right middle and right lower lobes consistent with worsening metastatic disease. The largest nodule is posterior laterally right lower lobe measuring 12 mm. IMPRESSION: Enlarging necrotic right upper lobe mass since prior CT 2 months earlier. There has also been development of innumerable small noncalcified pulmonary nodules throughout both lungs consistent with worsening metastatic disease. Mediastinal masses have increased in size as well. CT abdomen and pelvis: Patient has developed numerous solid appearing masses throughout both lobes of the liver. Largest solitary mass in the left lobe is seen measuring at least 6 cm in diameter. Bilateral adrenal masses have increased in size. Right adrenal mass now measures at least 9.0 x 9.4 cm compared with approximately 8.0 x 7.8 cm. Left adrenal mass measures 6.6 x 5.6 cm compared with 4.0 x 3.4 cm. Kidneys are unremarkable. Aorta is calcified but nonaneurysmal. Small and large bowel loops are nonobstructed. There is some free fluid in the pelvis. No definite pelvic lymphadenopathy is seen. Bladder is unremarkable. Bony structures are nonacute. IMPRESSION: Development of diffuse hepatic metastatic disease. Previously noted bilateral adrenal masses have significantly increased in size as well. Results were discussed with Dr. Zaragoza prior to this dislocation. Dictated by: Dictated on workstation # [id number]
[2018-09-13 19:59] VITALS: BP 143/80
[2018-09-13] MEDS: LORazepam INJ 2 MG/ML (ATIVAN) VIAL IVP PRN (22:45)
[2018-09-14] MEDS: NS IV 1000 ML 1,000 ML IV SCH ×2 (00:17→05:01)
[2018-09-14] MEDS: LORazepam INJ 2 MG/ML (ATIVAN) VIAL IVP PRN ×3 (05:01→23:38)
[2018-09-14] MEDS: PANTOPRAZOLE 40 MG (PROTONIX) TAB PO SCH (05:48)
[2018-09-14] MEDS: morphine PCA 100 MG/100 ML BAG IV PRN ×2 (07:17→15:46)
[2018-09-14] MEDS: MAGNESIUM OXIDE (MAG-OX)400 MG TAB PO SCH ×2 (08:45→18:19)
[2018-09-14] MEDS: PARoxetine 10 MG (PAXIL) TAB PO SCH (09:00)
[2018-09-14] MEDS: POLYETHYLENE GLYCOL 17 GM (MIRALAX) PACK PO SCH (09:00)
[2018-09-14] MEDS: ESTRADIOL 1 MG TAB (ESTRACE) PO SCH (09:00)
[2018-09-14] MEDS: SENNA W/DOCUSATE (SENOKOT S) TABLET PO SCH (09:00)
--- NOTE | 2018-09-14 16:43 | Progress Note-Standard ---
Standard Progress Note Progress Notes/Assess & Plan Date Seen by a Provider: Sep 14, 2018 Time Seen by a Provider: 16:38 Progress/Assessment & Plan 58-year-old female admitted to the hospital with uncontrolled back pain and increasing sleepiness. 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 She is on palliative chemotherapy with the weekly carboplatin and paclitaxel regimen and is undergoing the second month of treatment. CT scan of the chest, abdomen and pelvis done yesterday showed significant progression of disease with new disease in liver. There is also significant increase in size of bilateral adrenal lesion and lung lesions as well as new lung lesions. The right-sided abdominal and the back pain can be explained by these lesions. She has primary resistant disease and chance of response with the second line treatment is significantly low. Patient's current and daughter as well as son-in- law was syndrome and explained all this to them. Per patient's wishes they would prefer to continue with best supportive care. I will maintain her as DO NOT RESUSCITATE. She is on morphine at 5 mg/h continuous infusion with 2 mg boluses every 15 minutes as needed and is comfortable and resting. She is somnolent but bakes up intermittently with discomfort. I will continue to titrate the morphine as needed to keep her comfortable. She is also receiving Ativan 0.5 mg IV every 4 hours as needed for anxiety and restlessness. Her prognosis is poor and she is terminal. KINDRA FALK Sep 14, 2018 16:43
[2018-09-14] MEDS: ENOXAPARIN 30 MG/0.3 ML (LOVENOX) SYR SC SCH (18:18)
[2018-09-14] MEDS ORDERED: SCOPOLAMINE 1.5 MG (TRANSDERM-SCOP) PATCH ONE (20:24)
[2018-09-14] MEDS ORDERED: SCOPOLAMINE 1.5 MG (TRANSDERM-SCOP) PATCH TD ONE (20:45)
[2018-09-15] MEDS: morphine PCA 100 MG/100 ML BAG IV PRN ×3 (01:22→22:19)
[2018-09-15] MEDS: PANTOPRAZOLE 40 MG (PROTONIX) TAB PO SCH (04:20)
[2018-09-15] MEDS: MAGNESIUM OXIDE (MAG-OX)400 MG TAB PO SCH ×2 (07:55→17:07)
[2018-09-15] MEDS: ESTRADIOL 1 MG TAB (ESTRACE) PO SCH (09:14)
[2018-09-15] MEDS: POLYETHYLENE GLYCOL 17 GM (MIRALAX) PACK PO SCH (09:14)
[2018-09-15] MEDS: SENNA W/DOCUSATE (SENOKOT S) TABLET PO SCH (09:15)
[2018-09-15] MEDS: PARoxetine 10 MG (PAXIL) TAB PO SCH (09:15)
[2018-09-15] MEDS: NS IV 1000 ML 1,000 ML IV SCH (12:44)
[2018-09-15] MEDS ORDERED: FENTANYL 100 MCG PATCH REMOVAL TP SCH (15:59)
[2018-09-15] MEDS: fentaNYL PATCH 100 MCG (DURAGESIC) TD SCH (16:22)
--- NOTE | 2018-09-15 17:00 | Progress Note-Standard ---
Standard Progress Note Progress Notes/Assess & Plan Date Seen by a Provider: Sep 15, 2018 Time Seen by a Provider: 16:55 Progress/Assessment & Plan 58-year-old female admitted to the hospital with uncontrolled back pain and increasing sleepiness. 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 She was on palliative chemotherapy with weekly carboplatin and paclitaxel regimen for approximately [address] scan of the chest, abdomen and pelvis done during this hospitalization showed significant progression of disease with new disease in liver. There is also significant increase in size of bilateral adrenal lesion and lung lesions as well as new lung lesions. The right-sided abdominal and the back pain can be explained by these lesions. She is on best supportive care and receiving morphine by COLLAR WORKER at 5 mg/h continuous infusion with 2 mg bolus as needed. Family is using the bolus intermittently for patient discomfort. She is somnolent and barely arousable. She is not in any distress. Chain Soriano breathing noted with short pauses. She will continue as DO NOT RESUSCITATE. Her prognosis is poor and she is terminal. KINDRA FALK Sep 15, 2018 17:00
[2018-09-15] MEDS: ENOXAPARIN 30 MG/0.3 ML (LOVENOX) SYR SC SCH (17:05)
--- NOTE | 2018-09-17 04:22 | DISCHARGE SUMMARY ---
DATE OF SERVICE: DISCHARGE, SUMMARY DATE OF EXPIRY: 09/16/2018. The patient was admitted to room 420. The patient is a 58-year-old female with a diagnosis of poorly differentiated lung cancer with metastatic disease to bilateral adrenal glands. She was on palliative chemotherapy with a weekly carboplatin and paclitaxel regimen and was on the second course of chemotherapy prior to admission. She was admitted on 09/10/2018 with uncontrolled pain, increased lethargy and inability to eat or drink for one to two days. Evaluation in the emergency room showed the patient in moderate distress and given IV fluids and pain medications. Workup including a chest x-ray showed increase in the right upper lobe lung mass. She was also noted to be hyponatremic, probably related to the lung pathology. She was admitted to the oncology service and was started on a morphine FEEDER CATCHER for pain control. The patient was on fentanyl patch on an outpatient basis 800 mcg per hour, which was continued, but the oxymorphone for breakthrough pain was discontinued as she was on the FEEDER CATCHER. She was initially started on 1 mg per hour continuous infusion with 1 mg bolus every 10 minutes, the dose was titrated for comfort. Initially, she had some relief, but had paroxysmal pain in the right side of the abdomen and back. This was controlled with increased boluses as well as a gradual increase in the baseline confusion. Because of worsening symptoms, a CT scan of the chest and abdomen was obtained on 09/13/2018, which showed significant progression in the lung lesions as well as new lung lesions appearing. Bilateral adrenal lesions had also progressed significantly. In addition, there was significant amount of metastasis in the liver, which was not present approximately 2 months before. These data was discussed with the patient and her family as she had rapidly progressing primary resistant lung cancer. At this point, it was decided to proceed with best supportive care and she was made a DNR per her expressed wishes. Morphine was continuously titrated for pain control and eventually, the patient became unresponsive on 09/15/2018 with Junito-Soriano respirations. The family was present throughout her stay in the hospital and understood that she was terminal. She on 09/16/2018 morning and the body released to the that was expected. Job ID: [id number] DocumentID: [id number] Dictated Date: 09/16/2018 10:07:20 Broom Bundler Date: 09/17/2018 04:21:51 Dictated By: KINDRA FALK MD
[2018-09-17] MEDS ORDERED: SCOPOLAMINE PATCH REMOVAL TP SCH (21:00)
== END 2018-09-15 22:10 | disposition expired | DRG 948 ==
LOC: EDUNIT# 19:22 → IVTHERAPY 19:25 → 4TH 21:30
PROVIDERS: ADMIT Internal Medicine Hematology & Oncology; ATTEND Internal Medicine Hematology & Oncology
DX: G89.3 Neoplasm related pain (acute) (chronic) (principal); C34.11 Malignant neoplasm of upper lobe, right bronchus or lung; C79.71 Secondary malignant neoplasm of right adrenal gland; C79.72 Secondary malignant neoplasm of left adrenal gland; C78.7 Secondary malignant neoplasm of liver and intrahepatic bile duct; E87.1 Hypo-osmolality and hyponatremia; J44.9 Chronic obstructive pulmonary disease, unspecified; Z66 Do not resuscitate; Z51.5 Encounter for palliative care; I10 Essential (primary) hypertension; E86.0 Dehydration; F41.0 Panic disorder [episodic paroxysmal anxiety]; F32.9 Major depressive disorder, single episode, unspecified; R59.0 Localized enlarged lymph nodes; R11.2 Nausea with vomiting, unspecified; D64.81 Anemia due to antineoplastic chemotherapy; R40.0 Somnolence; R64 Cachexia; K44.9 Diaphragmatic hernia without obstruction or gangrene; F17.210 Nicotine dependence, cigarettes, uncomplicated; Z87.11 Personal history of peptic ulcer disease; T45.1X5A Adverse effect of antineoplastic and immunosuppressive drugs, initial encounter
CPT/HCPCS: 36415; 71045; 71260; 74178; 80048; 80053; 81000; 82150; 83605; 83690; 83735; 84443; 84484; 85007; 85025; 85027; 85610; 85730; 87040; 87804; 93005; 93041; 96361; 96374; 96375; 96376